=== PATIENT | male | born 1930 | race Caucasian/White ===

== ENCOUNTER 2018-08-01 12:47 | Inpatient (IN) | payer OTHER, MEDICARE ==
[2018-08-01 13:55] LABS: Protime INR 1.1
[2018-08-01 13:56] LABS: Absolute Lymphocytes (CBC) 1.2 K/uL (0.7-4.9); Absolute Monocytes 1.3 K/uL (0.1-1.3); Absolute Neutrophil 10.3 K/uL (1.8-8.0); Basophils % 0.2 % (0-1.3); Eosinophils % 0.4 % (0-4.4); Lymphocytes % 9.5 % (15.3-44.8); MCH 31.6 pg (27.0-35.0); MCV 94.4 fL (80-100); MPV 9.1 fL (7.6-11.3); Monocytes % 9.8 % (3.3-12.3); RBC Red Blood Cell Count 4.77 M/uL (4.33-5.43)
[2018-08-01 14:17] LABS: ALT/SGPT 20 U/L (12-78); AST/SGOT 15 U/L (15-37); Albumin 3.1 g/dL (3.4-5.0); Alkaline Phosphatase 86 U/L (45-117); BUN Blood Urea Nitrogen 19 mg/dL (7-18); Bicarbonate 24 mmol/L (21-32); Bilirubin Direct 0.3 mg/dL (0-0.2); Glucose Level 100 mg/dL (74-106); Magnesium 2.5 mg/dL (1.8-2.4); NT PRO-BNP 2061 pg/mL (<450); Sodium Level 136 mmol/L (136-145); Troponin (Emerg Dept Use Only) < 0.02 ng/mL (0.0-0.045)
--- NOTE | 2018-08-01 14:22 | RAD REPORT ---
EXAM DESCRIPTION: RAD - Chest Single View - 08/01/2018 1:48 pm CLINICAL HISTORY: Wheezing, shortness of breath COMPARISON: August 2014 TECHNIQUE: AP portable chest image was obtained 1343 hours . FINDINGS: Lung volumes are relatively low. No acute right lung field finding. Mid and upper left mukund g field also clear. Left costophrenic angle blunting is present. Left hemidiaphragm is poorly defined . Infiltrate, atelectasis or scarring oral possible in the left base. Patient has had prior left base disease. Trachea is midline. Heart and vasculature are normal. No pneumothorax or large pleural effu valeria. No acute bony abnormality seen. No acute aortic findings suspected. IMPRESSION: Left base opacification from infiltrate, atelectasis, scarring or a combination. No failure or other acute cardiopulmonary finding seen.
--- NOTE | 2018-08-01 16:22 | RAD REPORT ---
EXAM DESCRIPTION: CT - Chest For Pe Angio - 08/01/2018 3:58 pm CLINICAL HISTORY: Chest pain, shortness of breath, low-grade fever COMPARISON: CT study 2014, chest films same date TECHNIQUE: Dynamically enhanced 3 mm thick images of the chest were obtained during administration o f approximately 150mL Isovue 370 IV contrast. Coronal and oblique MIP reconstruction images were gene rated and reviewed. Exam utilizes a protocol to evaluate the pulmonary arterial tree. All CT scans are performed using dose optimization technique as appropriate and may include automated exposure control or mA/KV adjustment according to patient size. FINDINGS: Pulmonary emboli are present at the left pulmonary artery junction with both left upper lo be and left lower lobe lobar and segmental branches. There is atelectasis in the left lower lobe as w ell as a small infiltrate component. Large pulmonary embolism is present in the distal right pulmonar y artery extending into right upper right middle and right lower lobar branches. There is some contin uation into segmental branches in the lower lobe. No saddle embolus. The aorta as imaged shows no acute or suspicious finding. No pericardial thickening or effusion. No right lung field infiltrate. Trace pleural fluid present. No pneumothorax. No mediastinal or hilar suspicious masses. No chest wall masses or abnormal axillary lymphadenopathy. IMPRESSION: Extensive pulmonary embolic disease is present. Large emboli are present at the right an d left pulmonary artery bifurcation into all 5 lobes of the lung dubois. Segmental branch pulmonary e mboli are present in the right lower and left upper lobes. Atelectasis and infiltrate component present in the left lower lobe. Patient has significant hiatal hernia with most of the stomach intrathoracic.
--- NOTE | 2018-08-01 16:26 | ER ---
Nurse's Notes [facility] Name: Dev Sanz Age: 87 yrs Sex: Male : 1930 Arrival Date: 08/01/2018 Time: 12:51 Bed 19 Private MD: Terry Conde E Diagnosis: Pulmonary embolism Presentation: 08/01 12:54 Presenting complaint: Patient states: I have been having wheezing for the last week la1 with intermittent low grade fever. My PCP though it was my heart and I had an echo and nuclear stress on Thursday and and they were normal but they never did a CXR. Transition of care: patient was not received from another setting of care. Onset of symptoms was August 01, 2018. Risk Assessment: Do you want to hurt yourself or someone else? Patient reports no desire to harm self or others. Initial Sepsis Screen: Does the patient meet any 2 criteria? No. Patient's initial sepsis screen is negative. Does the patient have a suspected source of infection? No. Patient's initial sepsis screen is negative. Care prior to arrival: None. 12:54 Method Of Arrival: Wheelchair la1 12:54 Acuity: DANILO 3 la1 Historical: - Allergies: 12:56 No Known Allergies; la1 - Home Meds: 17:46 Osteo Bi-Flex oral oral [Active]; Probiotic oral oral [Active]; Gas-X oral oral twice a em day [Active]; cephalexin 500 mg Oral cap daily [Active]; carvedilol 3.125 mg oral tab 1 tab 2 times per day [Active]; lisinopril 10 mg Oral tab 1 tab once daily [Active]; furosemide 20 mg Oral tab 1 tab once daily [Active]; - PMHx: 12:56 hiatal hernia; Hypertension; la1 - PSHx: 17:46 None; em - Immunization history:: Adult Immunizations up to date. - Social history:: Smoking status: Patient/guardian denies using tobacco. - Ebola Screening: : No symptoms or risks identified at this time. Screenin:20 Abuse screen: Denies threats or abuse. Nutritional screening: No deficits noted. em Tuberculosis screening: No symptoms or risk factors identified. Fall Risk None identified. Assessment: 13:20 General: Appears in no apparent distress. uncomfortable, Behavior is calm, cooperative, em Denies fever. Pain: Complains of pain in diaphragm Pain does not radiate. Pain currently is 0 out of 10 on a pain scale. Pain began 2-3 days ago. Neuro: Level of Consciousness is awake, alert, obeys commands, Oriented to person, place, time, situation. Cardiovascular: Capillary refill < 3 seconds Patient's skin is warm and dry. Rhythm is sinus rhythm. Respiratory: Reports shortness of breath cough that is Airway is patent Respiratory effort is even, Respiratory pattern is regular, tachypnea Breath sounds are clear bilaterally. Onset: The symptoms/episode began/occurred 1 week ago, the patient has mild shortness of breath. GI: Abdomen is round Bowel sounds present X 4 quads. Reports nausea, vomiting. : Barber in place Urine is clear. EENT: No signs and/or symptoms were reported regarding the EENT system. Derm: Skin is intact, Skin is pink, warm \T\ dry. Musculoskeletal: Range of motion: limited in all extremities. 13:30 Reassessment: I agree with previous assessment. hb 14:31 Reassessment: Patient appears in no apparent distress at this time. Patient and/or em family updated on plan of care and expected duration. Pain level reassessed. Patient is alert, oriented x 3, equal unlabored respirations, skin warm/dry/pink. pending CT. 16:30 Reassessment: Patient and/or family updated on plan of care and expected duration. Pain em level reassessed. Patient is alert, oriented x 3, equal unlabored respirations, skin warm/dry/pink. rad. tech reports the IV in pt infiltrated during CT exam, D/C IV canula, swelling noted, warm compresses applied, pt denies pain currently, instructed to inform staff if pain arises, pt demonstrate understanding Patient denies pain at this time. 17:25 Reassessment: Patient appears in no apparent distress at this time. Patient and/or em family updated on plan of care and expected duration. Pain level reassessed. Patient is alert, oriented x 3, equal unlabored respirations, skin warm/dry/pink. Patient denies pain at this time. 17:35 Reassessment: ultrasound at bedside, report given to SHENG Rodriguez. em 18:12 Reassessment: Patient appears in no apparent distress at this time. Patient and/or em family updated on plan of care and expected duration. Pain level reassessed. Patient is alert, oriented x 3, equal unlabored respirations, skin warm/dry/pink. Vital Signs: 12:56 BP 122 / 88; Pulse 75; Resp 16; Temp 99.1; Pulse Ox 92% on R/A; Weight 86.18 kg; Height la1 5 ft. 9 in. (175.26 cm); 14:24 BP 131 / 71; Pulse 79; Resp 23; Pulse Ox 93% on 2 lpm NC; Pain 0/10; em 15:30 BP 132 / 76; Pulse 76; Resp 18; Pulse Ox 99% on R/A; Pain 0/10; em 16:30 BP 121 / 85; Pulse 79; Resp 16; Pulse Ox 95% on 3 lpm NC; Pain 0/10; em 17:46 BP 124 / 86; Pulse 75; Resp 26; Temp 98.6(O); Pulse Ox 97% on R/A; Pain 0/10; em 12:56 Body Mass Index 28.06 (86.18 kg, 175.26 cm) la1 ED Course: 12:51 Patient arrived in ED. sb2 12:51 Terry Conde MD is Private Physician. sb2 12:55 Triage completed. la1 12:57 Arm band placed on left wrist. la1 13:02 Kryst[facility] White F[facility]-C [facility]. kb 13:02 Kraig Garcia MD is Attending Physician. kb 13:11 EKG done, by ED staff, reviewed by Krysten REDMOND. dh3 13:20 Patient has correct armband on for positive identification. Placed in gown. Bed in low em position. Call light in reach. Side rails up X2. Adult w/ patient. bus driver/monitor on. Pulse ox on. NIBP on. 13:20 Oxygen administration via nasal cannula \T\ 2L/min. em 13:21 Nik Felton LVN is Primary Nurse. em 13:30 Initial lab(s) drawn, by me, sent to lab. Inserted saline lock: 22 gauge in left em antecubital area, using aseptic technique. Blood collected. 13:46 X-ray completed. Portable x-ray completed in exam room. Patient tolerated procedure la2 well. 13:48 XRAY Chest (1 view) In Process Unspecified. EDMS 15:59 CT Chest For PE Angio In Process Unspecified. EDMS 16:25 Ilene Dempsey MD is Hospitalizing Provider. kb 16:30 No provider procedures requiring assistance completed. IV discontinued, intact, em bleeding controlled, No redness/swelling at site. Pressure dressing applied, left AC. Administered Medications: 16:52 Drug: Lovenox 1 mg/kg Route: Sub-Q; Site: right lower abdomen; em 17:48 Follow up: Response: No adverse reaction em Outcome: 16:26 Decision to Hospitalize by Provider. kb 18:11 Admitted to Tele accompanied by tech, family with patient, via stretcher, room 431, em with oxygen, with chart, Report called to SHENG Rodriguez 18:11 Condition: good 18:11 Instructed on the need for admit, Demonstrated understanding of instructions. 18:13 Patient left the ED. em Signatures: Dispatcher [employer] EDMS Krysten White, SLICER MACHINE OPERATOR-C SLICER MACHINE OPERATOR-Ckb Nik Felton, DIGITAL MUSIC INSTRUCTOR DIGITAL MUSIC INSTRUCTOR em Peter Whipple RN RN la1 Ninfa Recinos, SHENG RN Angelica Rao 3 Romi Santamaria la2 Ellen Hawkins 2
--- NOTE | 2018-08-01 16:26 | EDPHYS ---
Physician Documentation [facility] Name: Dev Sanz Age: 87 yrs Sex: Male : 1930 Arrival Date: 08/01/2018 Time: 12:51 Bed 19 Private MD: Terry Conde E ED Physician Kraig Garcia HPI: 08/01 14:40 This 87 yrs old Male presents to ER via Wheelchair with complaints of kb Wheezing > 1 Year. 14:40 The patient has shortness of breath at rest. Onset: The symptoms/episode began/occurred kb 1 month(s) ago. Duration: The symptoms are continuous. The patient's shortness of breath is aggravated by exertion, is alleviated by nothing. Associated signs and symptoms: Pertinent positives: chest pain, Pertinent negatives: non-productive cough, productive cough, diaphoresis, dizziness, fever, hemoptysis, loss of consciousness, nausea, numbness in extremities, visual changes, vomiting. Severity of symptoms: At their worst the symptoms were moderate in the emergency department the symptoms are unchanged. The patient has not experienced similar symptoms in the past. The patient has been recently seen by a physician: the patient's primary care provider. Historical: - Allergies: 12:56 No Known Allergies; la1 - Home Meds: 17:46 Osteo Bi-Flex oral oral [Active]; Probiotic oral oral [Active]; Gas-X oral oral twice a em day [Active]; cephalexin 500 mg Oral cap daily [Active]; carvedilol 3.125 mg oral tab 1 tab 2 times per day [Active]; lisinopril 10 mg Oral tab 1 tab once daily [Active]; furosemide 20 mg Oral tab 1 tab once daily [Active]; - PMHx: 12:56 hiatal hernia; Hypertension; la1 - PSHx: 17:46 None; em - Immunization history:: Adult Immunizations up to date. - Social history:: Smoking status: Patient/guardian denies using tobacco. - Ebola Screening: : No symptoms or risks identified at this time. ROS: 14:39 Constitutional: Negative for fever, chills, and weight loss, Abdomen/GI: Negative for kb abdominal pain, nausea, vomiting, diarrhea, and constipation, Back: Negative for injury and pain, : Negative for injury, bleeding, discharge, and swelling, MS/Extremity: Negative for injury and deformity, Skin: Negative for injury, rash, and discoloration, Neuro: Negative for headache, weakness, numbness, tingling, and seizure. 14:39 Cardiovascular: Positive for chest pain, of the diaphragm. 14:39 Respiratory: Positive for dyspnea on exertion, shortness of breath, wheezing, Negative for cough, hemoptysis, orthopnea, pleurisy, sputum production. Exam: 14:39 Constitutional: This is a well developed, well nourished patient who is awake, alert, kb and in no acute distress. Head/Face: Normocephalic, atraumatic. ENT: Nares patent. No nasal discharge, no septal abnormalities noted. Tympanic membranes are normal and external auditory canals are clear. Oropharynx with no redness, swelling, or masses, exudates, or evidence of obstruction, uvula midline. Mucous membranes moist. Neck: Trachea midline, no thyromegaly or masses palpated, and no cervical lymphadenopathy. Supple, full range of motion without nuchal rigidity, or vertebral point tenderness. No Meningismus. Chest/axilla: Normal chest wall appearance and motion. Nontender with no deformity. No lesions are appreciated. Cardiovascular: Regular rate and rhythm with a normal S1 and S2. No gallops, murmurs, or rubs. Normal PMI, no JVD. No pulse deficits. Abdomen/GI: Soft, non-tender, with normal bowel sounds. No distension or tympany. No guarding or rebound. No evidence of tenderness throughout. Back: No spinal tenderness. No costovertebral tenderness. Full range of motion. Skin: Warm, dry with normal turgor. Normal color with no rashes, no lesions, and no evidence of cellulitis. MS/ Extremity: Pulses equal, no cyanosis. Neurovascular intact. Full, normal range of motion. Neuro: Awake and alert, GCS 15, oriented to person, place, time, and situation. Cranial nerves II-XII grossly intact. Motor strength 5/5 in all extremities. Sensory grossly intact. Cerebellar exam normal. Normal gait. 14:39 Respiratory: mild respiratory distress is noted, Respirations: labored breathing, that is mild, Breath sounds: decreased breath sounds, that are moderate, are located in both bases. Vital Signs: 12:56 BP 122 / 88; Pulse 75; Resp 16; Temp 99.1; Pulse Ox 92% on R/A; Weight 86.18 kg; Height la1 5 ft. 9 in. (175.26 cm); 14:24 BP 131 / 71; Pulse 79; Resp 23; Pulse Ox 93% on 2 lpm NC; Pain 0/10; em 15:30 BP 132 / 76; Pulse 76; Resp 18; Pulse Ox 99% on R/A; Pain 0/10; em 16:30 BP 121 / 85; Pulse 79; Resp 16; Pulse Ox 95% on 3 lpm NC; Pain 0/10; em 17:46 BP 124 / 86; Pulse 75; Resp 26; Temp 98.6(O); Pulse Ox 97% on R/A; Pain 0/10; em 12:56 Body Mass Index 28.06 (86.18 kg, 175.26 cm) la1 MDM: 13:02 Patient medically screened. kb 14:40 Data reviewed: vital signs, nurses notes. Data interpreted: Pulse oximetry: on room air kb is 92 %. Interpretation: borderline. 16:20 Counseling: I had a detailed discussion with the patient and/or guardian regarding: the kb historical points, exam findings, and any diagnostic results supporting the discharge/admit diagnosis, lab results, radiology results, the need for further work-up and treatment in the hospital. 16:25 Physician consultation: Ilene Dempsey MD was called at 16:25, message left. kb 08/01 13:06 Order name: Basic Metabolic Panel; Complete Time: 14:18 kb 08/01 13:06 Order name: CBC with Diff; Complete Time: 14:07 kb 08/01 13:06 Order name: LFT's; Complete Time: 14:18 kb 08/01 13:06 Order name: Magnesium; Complete Time: 14:18 kb 08/01 13:06 Order name: NT PRO-BNP; Complete Time: 14:18 kb 08/01 13:06 Order name: PT-INR; Complete Time: 14:07 kb 08/01 13:06 Order name: Troponin (emerg Dept Use Only); Complete Time: 14:18 kb 08/01 13:06 Order name: XRAY Chest (1 view); Complete Time: 14:23 kb 08/01 13:06 Order name: EKG; Complete Time: 13:07 kb 08/01 13:06 Order name: Cardiac monitoring; Complete Time: 14:19 kb 08/01 13:06 Order name: EKG - Nurse/Tech; Complete Time: 13:11 kb 08/01 14:25 Order name: CT Chest For PE Angio; Complete Time: 16:23 kb 08/01 16:23 Order name: US Extremity Venous W Compression Sae kb 08/01 13:06 Order name: IV Saline Lock; Complete Time: 14:19 kb 08/01 13:06 Order name: Labs collected and sent; Complete Time: 14:19 kb 08/01 13:06 Order name: O2 Per Protocol; Complete Time: 14:19 kb 08/01 13:06 Order name: O2 Sat Monitoring; Complete Time: 14:19 kb Administered Medications: 16:52 Drug: Lovenox 1 mg/kg Route: Sub-Q; Site: right lower abdomen; em 17:48 Follow up: Response: No adverse reaction em Disposition: 08/02 07:34 Co-signature as Attending Physician, Kraig Garcia MD I agree with the assessment and haresh plan of care. Disposition: 08/01/18 16:26 Hospitalization ordered by Ilene Dempsey for Inpatient Admission. Preliminary diagnosis is Pulmonary embolism. - Bed requested for Telemetry/MedSurg (Inpatient). - Status is Inpatient Admission. em - Condition is Fair. - Problem is new. - Symptoms are unchanged. UTI on Admission? No Signatures: Dispatcher [employer] EDKrysten Krause, ATOMIC PHYSICS PROFESSOR-C ATOMIC PHYSICS PROFESSOR-Ckb Kraig Garcia MD MD cha Munoz, Edgar, [employer]IVER [employer] Peter Marcelino, RN RN laAdri Shafer RN RN df Corrections: (The following items were deleted from the chart) 08/01 17:03 16:26 Hospitalization Ordered by Ilene Dempsey MD for Inpatient Admission. Preliminary df diagnosis is Pulmonary embolism. Bed requested for Telemetry/MedSurg (Inpatient). Status is Inpatient Admission. Condition is Fair. Problem is new. Symptoms are unchanged. UTI on Admission? No. kb 18:13 17:03 08/01/2018 16:26 Hospitalization Ordered by Ilene Dempsey MD for Inpatient em Admission. Preliminary diagnosis is Pulmonary embolism. Bed requested for Telemetry/MedSurg (Inpatient). Status is Inpatient Admission. Condition is Fair. Problem is new. Symptoms are unchanged. UTI on Admission? No. df
[2018-08-01] MEDS ORDERED: ONDANSETRON 4 MG/2 ML VIAL IV PRN (16:44)
[2018-08-01] MEDS ORDERED: ENOXAPARIN 80 MG/0.8 ML SQ ONE (16:49)
--- NOTE | 2018-08-01 18:28 | RAD REPORT ---
EXAM DESCRIPTION: US - Extrem Venous W Compress Sae - 08/01/2018 6:20 pm CLINICAL HISTORY: Leg pain and swelling COMPARISON: CT chest PE study same date TECHNIQUE: Real-time sonographic evaluation of the bilateral lower extremity common femoral, superfi cial femoral, popliteal and posterior tibial veins was performed. FINDINGS: Normal compressibility, flow augmentation, phasic flow and spontaneous flow are identified in the left lower extremity common femoral, superficial femoral, popliteal and posterior tibial vein s. No intraluminal filling defects seen. Right common femoral and superficial femoral veins are clear. Thrombus is present partially filling t he right popliteal vein. Vessel shows partial compression. Right posterior tibial vein is noncompress ible due to thrombus. IMPRESSION: Acute deep venous thrombosis right lower extremity from knee to ankle. No left leg DVT.
[2018-08-01] MEDS ORDERED: Levofloxacin 750mg IV 750 MG/150 ML BAG IV SCH (20:00)
[2018-08-01] MEDS: ENOXAPARIN 100 MG/ML SYR SQ SCH ×2 (20:33→20:46)
[2018-08-01 22:21] LABS: Urine Appearance CLEAR; Urine Bilirubin NEGATIVE (NEG); Urine Blood NEGATIVE (NEG); Urine Color YELLOW; Urine Glucose NEGATIVE (NEG); Urine Protein TRACE (NEG); Urine Specific Gravity >=1.030 (1.005-1.030)
[2018-08-01 22:28] LABS: Urine Microscopic Reflex ORDER UMIC
[2018-08-02 00:43] LABS: Urine Culture Reflex Order REFLEXED
[2018-08-02 00:44] LABS: Urine Bacteria <20 /HPF (NONE SEEN); Urine RBC <5 /HPF (NONE SEEN)
--- NOTE | 2018-08-02 05:04 | HP ---
Date of Admission: 08/01/2018 Primary Care Physician: Dr. Conde. Code Status: Full. Chief Complaint: Shortness of breath. History Of Present Illness: The patient is an 87-year-old male with past medical history of hypertension, who was in his usual state of health until 4 weeks prior to admission when the patient had sudden onset of shortness of breath. The patient was seen by primary care physician, thought to have issues with his heart and was sent to a employment officer. The patient's symptoms were worse with exertion. He denied any cough, sputum production, fevers, chills. No ill contacts. The patient's symptoms improved with rest. The patient denies any prolonged car rides or airplane flights. Otherwise, his symptoms were constant, moderate, and progressively worsening. The patient was seen by Cardiology recently, had a cardiac stress test done which was negative. Due to the patient's worsening symptoms, the was concerned and therefore brought him into the ER for further evaluation. Upon arrival, the patient's vital signs were stable. He was saturating 92% on room air which improved to 95% on 3 L. His workup revealed elevated white count of 12,000. BNP was 2000. Imaging studies, chest x-ray shows left base opacification from infiltrate, atelectasis, scarring or combination. CT angio chest was done for further evaluation and revealed extensive pulmonary embolic disease bilaterally and atelectasis and infiltrate present in the left lower lobe and significant hiatal hernia. The patient was given Lovenox and then referred for admission. When seen in the ER, the patient was awake, alert, oriented x3, in some mild respiratory distress. Past Medical History: Hypertension, hiatal hernia. Past Surgical History: None. Allergies: NO KNOWN DRUG ALLERGIES. Medications: List reviewed. Social History: The patient is , lives with his . Denies any tobacco use, alcohol use, or illicit drug use. Family History: Noncontributory in this 87-year-old male. Review of Systems: A 10-point system reviewed, negative except as above. Physical Examination: Vital Signs: Blood pressure 122/88, pulse 75, respirations 16, temperature 99.1 , O2 92% on room air. General: Awake, alert, oriented x3, elderly male, in some respiratory distress. Ill-appearing, frail. HEENT: Normocephalic, atraumatic. PERRLA. EOMI. Dry mucous membranes. Oropharynx is clear. Conjunctivae are anicteric. Neck: Supple. No JVD. Trachea midline. CV: S1, S2. Regular rate and rhythm. Peripheral pulses present. Respiratory: Diminished breath sounds, left worse than right. No wheezing or crackles. Gastrointestinal: Abdomen is soft, nontender, nondistended. Positive bowel sounds. No guarding or rigidity. Extremities: No clubbing, cyanosis, or edema. calf swelling Skin: The patient does have multiple abrasions and ecchymoses on his bilateral lower extremities. Otherwise, no rashes. Neuro: Cranial nerves 2 through 12 intact grossly. No focal neurological deficit. Speech is normal. Strength is symmetric in bilateral upper and lower extremities. Sensation intact to light touch. Psych: Mood is okay. Affect is full. Insight and judgment are fair. Laboratory Data: Sodium 136, potassium 4, chloride 104, CO2 24, BUN 19, creatinine 1.2, glucose 100, calcium 8.3, magnesium 2.5. Troponin less than 0.02. BNP 2061. Albumin 3.1, INR 1.10. WBC 12.8, H and H 15.1 and 45, platelets 154, neutrophils 80%. Imaging Studies: CT angio chest shows extensive pulmonary embolic disease present. Large emboli present at the right and left pulmonary artery bifurcation into all 5 lobes of the lung dubois. Segmental branch pulmonary emboli present in the right lower lobe and the left upper lobes. Atelectasis and infiltrate component present in the left lower lobe. The patient has significant hiatal hernia with most of the stomach intrathoracic. Chest x-ray shows left base opacification from infiltrate, atelectasis, scarring or combination. No failure or other cardiopulmonary abnormality. Assessment: An 87-year-old male with: 1. Extensive bilateral pulmonary embolisms. We will start on Lovenox 1 mg/kg q.12 hours. 2. Left base pneumonia. We will continue with IV antibiotics. Obtain blood cultures and sputum cultures. 3. Essential hypertension. Resume home medications as appropriate. 4. Hypermagnesemia. 5. Large hiatal hernia. Plan: Admit the patient to ICU, place as inpatient. We will consult Dr. Lanier, Pulmonology. We will obtain echocardiogram results or repeat echocardiogram here. We will obtain Doppler venous lower extremities bilaterally. Overall guarded prognosis. Place on continuous pulse oximetry. Unclear etiology of the PE. We will follow up with Doppler sono. /GENIE Voice ID: [id number] MTDD
[2018-08-02 06:09] LABS: Albumin 2.7 g/dL (3.4-5.0); Bilirubin Total 1.2 mg/dL (0.2-1.0); Potassium 3.5 mmol/L (3.5-5.1); Protein, Total 6.1 g/dL (6.4-8.2)
[2018-08-02 06:44] LABS: Absolute Lymphocytes (CBC) 1.2 K/uL (0.7-4.9); Absolute Monocytes 1.2 K/uL (0.1-1.3); Absolute Neutrophil 8.4 K/uL (1.8-8.0); Basophils % 0.2 % (0-1.3); Eosinophils % 0.6 % (0-4.4); MCH 31.8 pg (27.0-35.0); MCV 94.2 fL (80-100); MPV 9.7 fL (7.6-11.3); Monocytes % 10.8 % (3.3-12.3); RBC Red Blood Cell Count 4.24 M/uL (4.33-5.43)
--- NOTE | 2018-08-02 07:41 | EKG ---
Test Date: 2018-08-01 Test Time: 13:09:29 House Painter Helper: VAN MEASUREMENT RESULTS: Intervals: Rate: 76 VT: 164 QRSD: 134 QT: 426 QTc: 479 [place]: P: 55 VT: 164 QRS: -71 T: 109 INTERPRETIVE STATEMENTS: Normal sinus rhythm Left axis deviation Left bundle branch block Abnormal ECG Compared to ECG 06/26/2004 10:54:00 Left-axis deviation now present Left bundle branch block now present Sinus bradycardia no longer present Electronically Signed On 08-02-18 07:40:05 SOFTWARE RELEASE MANAGER by Bhupendra Delaney
--- NOTE | 2018-08-02 07:45 | P.CNS ---
Date of Consult: 08/02/18 Reason for Consult: Pulmonary emboli Chief Complaint: Shortness of breath History of Present Illness: Patient is 87 years of age a poor historian he has been dyspneic for quite some time became worse over the past week no prior history of cardiopulmonary problems he had bilateral pulmonary emboli no recent surgery no recent history of any malignancy patient is currently stable complaining of dyspnea on mild exertion patient was evaluated by Cardiology recently in the ICU stable Allergies No Known Allergies Allergy (Unverified 08/01/18 18:34) Home Medications: Carvedilol [Coreg*] 3.125 mg PO BID 08/01/18 Furosemide 20 mg PO DAILY 08/01/18 Glucosamine HCl/Chondr Diane A Na [Osteo Bi-Flex Caplet] 1 each PO DAILY 08/01/18 L.acidoph,Paracasei, B.lactis [Probiotic] 1 each PO DAILY 08/01/18 Lisinopril [Prinivil*] 10 mg PO DAILY 08/01/18 Simethicone [Gas-X] 1 cap PO BID 08/01/18 cephALEXin [Cephalexin] 500 mg PO DAILY 08/01/18 - Past Medical/Surgical History Diabetic: No -: HTN -: anemia -: bladder retention -: hiatal hernia -: Greenlight prostate laser -: bilateral cataract - Family History Father Medical History: Cancer Notes: Bladder CA Mother Medical History: Heart disease - Social History Alcohol use: No CD- Drugs: No Caffeine use: Yes Place of Residence: Home Review of Systems 10-point ROS is otherwise unremarkable General: Weakness Respiratory: Shortness of Breath Physical Examination Temp Pulse Resp BP Pulse Ox 98.9 F 75 24 H 109/68 96 08/02/18 04:00 08/02/18 06:00 08/02/18 06:00 08/02/18 06:00 08/02/18 06:00 General: Alert, Oriented x3 HEENT: Atraumatic Neck: Supple Respiratory: Clear to auscultation bilaterally Cardiovascular: Regular rate/rhythm, Normal S1 S2, Edema (Right leg is swollen) Gastrointestinal: Normal bowel sounds, Soft and benign Musculoskeletal: No clubbing, No swelling Integumentary: No rashes, No breakdown Neurological: Normal speech Laboratory Data (last 24 hrs) 08/01/18 13:36: PT 13.0 H, INR 1.10 08/01/18 13:36: WBC 12.8 H, Hgb 15.1, Hct 45.0, Plt Count 154 08/01/18 13:36: Sodium 136, Potassium 4.0, BUN 19 H, Creatinine 1.20, Glucose 100, Magnesium 2.5 H, Total Bilirubin 1.0, AST 15, ALT 20, Alkaline Phosphatase 86 - Problems (1) Pulmonary emboli Current Visit: Yes Status: Acute Plan: Patient is 87 years of age admitted with right-sided DVT bilateral pulmonary emboli with blood pressure is slightly low will Dc his antihypertensive agent 2D echo with Doppler fluid bolus currently anti coagulated with Lovenox plan to Dc all antibiotics all anti hypertensive agents patient is stable to be transferred to the floor patient will need lifelong anticoagulation due to the extent of his pulmonary emboli Qualifiers: Chronicity: acute
[2018-08-02] MEDS ORDERED: CARVEDILOL 3.125 MG TAB PO SCH (08:00)
[2018-08-02] MEDS ORDERED: NA CHLORIDE 0.9% 1,000 ML IV SCH (08:00)
[2018-08-02] MEDS: ENOXAPARIN 100 MG/ML SYR SQ SCH (08:49)
[2018-08-02] MEDS ORDERED: FUROSEMIDE 20 MG PO SCH (09:00)
[2018-08-02] MEDS ORDERED: HOME MED 1 EA UNK (L.Acidoph,Paracasei, B.Lactis [Probiotic] 1 EACH) PO SCH (09:00)
[2018-08-02] MEDS ORDERED: GLUCOSAMINE HCL PO SCH (09:00)
[2018-08-02] MEDS ORDERED: CHONDR SU A NA PO SCH (09:00)
[2018-08-02] MEDS ORDERED: LISINOPRIL 10 MG PO SCH (09:00)
[2018-08-02] MEDS ORDERED: CEPHALEXIN 500 MG PO SCH (09:00)
--- NOTE | 2018-08-02 12:46 | PN ---
Date of Progress Note: 08/02/2018 Subjective: Patient seen and examined. Chart reviewed and case discussed with RN and Dr. Lanier. The patient states his breathing is better; however, gets very short winded with minimal movement. Medications: List reviewed. Code Status: Full. Physical Examination: Vital Signs: Temperature 98.5, heart rate 72, blood pressure 101/63, respirations 24, O2 98% on 3 L via nasal cannula. General: Awake, alert, oriented x3. Elderly male, somewhat ill appearing. CV: S1 and S2. Regular rate and rhythm. Peripheral pulses present bilaterally. Respiratory: The patient is tachypneic, use of accessory muscles is present, otherwise moving air well. Gastrointestinal: Abdomen is soft, nontender, nondistended. Positive bowel sounds. No guarding or rigidity. Extremities: No clubbing, cyanosis, or edema. Neuro: Cranial nerves 2 through 12 intact grossly. No focal neurological deficit. Speech is normal. Skin: No rashes. Normal skin turgor. Does have some abrasions on his lower extremities bilaterally. Laboratory Data: Sodium 138, potassium 3.5, chloride 103, CO2 27, BUN 18, creatinine 1.3, glucose 90, calcium 8.2, total bilirubin 1.2, albumin 2.7. WBC 10.8, platelets 148. Urine culture pending. Assessment: An 87-year-old male with: 1. Bilateral extensive pulmonary embolism. We will continue with Lovenox. We will need to be switched over to oral anticoagulant upon discharge. The patient seen by Pulmonology. Appreciate Dr. Lanier's input. Will need to be on lifelong anticoagulation due to the extent of his embolism. 2. Left base pneumonia. Antibiotics discontinued by Pulmonology. White count has normalized. Cultures pending. The patient denies any cough or sputum production. 3. Essential hypertension. The patient is currently hypotensive. Blood pressure medications on hold. 4. Right lower extremity deep vein thrombosis, extensive, likely source of thromboembolism. We will continue with Lovenox therapeutic dose. 5. Large hiatal hernia. 6. Hyperbilirubinemia, likely acute phase reactant. Plan: Step down from ICU. We will likely discharge in the next 24 to 48 hours depending on clinical response once blood pressure improves. The patient did have a recent stress test and echocardiogram last week. We will repeat echocardiogram to rule out right ventricular strain. The patient is hypotensive. /GENIE Voice ID: [id number] Report ID: [id number] AMADO
[2018-08-02] MEDS: NA CHLORIDE 0.9% 1,000 ML IV SCH ×2 (13:34→23:56)
--- NOTE | 2018-08-02 15:07 | ECHO ---
HEIGHT: 5 ft 8.5 in WEIGHT: 185 lb 0 oz DATE OF STUDY: 08/02/[address]: 2-DIMENSIONAL: YES M.MODE: YES DOPPLER: YES COLOR FLOW: YES TDS: NO PORTABLE: NO DEFINITY: NO BUBBLE STUDY: NO DIAGNOSIS: DYSPNEA CARDIAC HISTORY: CATHERIZATION: NO SURGERY: NO PROSTHETIC VALVE: NO PACEMAKER: NO MEASUREMENTS (cm) DIASTOLIC (NORMALS) SYSTOLIC (NORMALS) IVSd 1.0 (0.6-1.2) LA Diam 2.5 (1.9-4.0) LVEF 57% LVIDd 3.6 (3.5-5.7) LVIDs (2.0-3.5) %FS 29% LVPWd 1.2 (0.6-1.2) Ao Diam 3.3 (2.0-3.7) 2 DIMENSIONAL ASSESSMENT: RIGHT ATRIUM: DILATED LEFT ATRIUM: NORMAL RIGHT VENTRICLE: DILATED LEFT VENTRICLE: NORMAL TRICUSPID VALVE: NORMAL MITRAL VALVE: NORMAL PULMONIC VALVE: NORMAL AORTIC VALVE: NORMAL PERICARDIAL EFFUSION: NONE AORTIC ROOT: NORMAL LEFT VENTRICULAR WALL MOTION: NORMAL DOPPLER/COLOR FLOW: MILD AORTIC REGURGITATION. IMPAIRED LEFT VENTRICULAR RELAXATION. MODERATE TRICUSPID REGURGITATION. SEVERE PULMONARY HYPERTENSION. ESTIMATED RIGHT VENTRICULAR SYSTOLIC PRESSURE >65 MMHG. COMMENTS: NORMAL LEFT VENTRICULAR EJECTION FRACTION. DILATED RIGHT ATRIUM AND RIGHT VENTRICLE. MILD AORTIC REGURGITATION. MODERATE TRICUSPID REGURGITATION. SEVERE PULMONARY HYPERTENSION. TECHNOLOGIST: AARON CAMPOS
--- NOTE | 2018-08-02 15:44 | P.PN ---
Subjective Date of Service: 08/01/18 patient complained of pleuritic chest pain. Remains hypoxic & becomes really tachypneic with minimal exertion. Will check echocardiogram in a.m. Review of Systems 10-point ROS is otherwise unremarkable Physical Examination - Vital Signs Temperature: 100.2 F Blood Pressure: 110/68 Pulse: 97 Respirations: 24 Pulse Ox (%): 94 - Physical Exam General: Alert, Mild distress Respiratory: Diminished, Expiratory wheezes Cardiovascular: Other (tachycardic with murmur) Musculoskeletal: No clubbing, Swelling Assessment & Plan - Problems (Diagnosis) (1) Pulmonary embolism, bilateral Current Visit: Yes Status: Acute (2) Hypotension Current Visit: Yes Status: Acute - Plan PLAN: 1. Continue anticoagulation 2. Echocardiogram 3. IV hydration Discharge Plan: Home Plan to discharge in: Greater than 2 days - Advance Directives Does patient have a Living Will: No Does patient have a Durable POA for Healthcare: No - Code Status/Comfort Care Code Status Assessed: Yes Code Status: Full Code
[2018-08-02] MEDS: ENOXAPARIN 80 MG/0.8 ML SQ SCH (20:32)
[2018-08-02] MEDS: SIMETHICONE 125 MG TAB PO SCH (20:33)
[2018-08-02] MEDS: ACETAMINOPHEN 500 MG TAB PO PRN (20:33)
[2018-08-03 04:13] LABS: Absolute Neutrophil 8.1 K/uL (1.8-8.0); Basophils % 0.2 % (0-1.3); Eosinophils % 0.7 % (0-4.4); Hematocrit 40.2 % (39.6-49.0); Lymphocytes % 9.5 % (15.3-44.8); MCH 31.5 pg (27.0-35.0); MCV 94.9 fL (80-100); MPV 9.3 fL (7.6-11.3); Monocytes % 9.8 % (3.3-12.3); RBC Red Blood Cell Count 4.24 M/uL (4.33-5.43)
[2018-08-03 04:27] LABS: Albumin 2.4 g/dL (3.4-5.0); Bilirubin Total 0.7 mg/dL (0.2-1.0); Potassium 3.6 mmol/L (3.5-5.1); Protein, Total 5.9 g/dL (6.4-8.2)
--- NOTE | 2018-08-03 08:14 | P.PN ---
Subjective Date of Service: 08/03/18 Chief Complaint: Massive pulmonary embolism Patient's condition is stable is still short of breath relatively low blood pressure. Considering that he takes antihypertensives at home was very abnormal right ventricular dilatation severe pulmonary hypertension Review of Systems General: Weakness Respiratory: Shortness of Breath Physical Examination - Vital Signs Temperature: 98.9 F Blood Pressure: 119/62 Pulse: 74 Respirations: 20 Pulse Ox (%): 94 - Physical Exam General: Alert, Oriented x3 Neck: Supple Respiratory: Clear to auscultation bilaterally Cardiovascular: Regular rate/rhythm, Edema (Edema of the right leg) Assessment And Plan - Current Problems (Diagnosis) (1) Pulmonary emboli Current Visit: Yes Status: Acute Plan: Patient is 87 years of age admitted with massive pulmonary embolism right ventricular strain right ventricular dilatation, severe pulmonary hypertension relatively low blood pressure considering he takes anti hypertensive agents I have discussed with the patient and his will plan to administer t-PA 100 mg over 2 hr tomorrow in the ICU I have discussed the risks and benefit include bleeding stroke patient agrees due to severity of his pulmonary embolism he is very high a risk so therefore in this case the risk better outweighs the benefits patient denies any recent falls surgeries history of intracranial neoplasm verified with patient only takes aspirin at home Qualifiers: Chronicity: acute
[2018-08-03] MEDS: ENOXAPARIN 80 MG/0.8 ML SQ SCH ×2 (08:29→21:34)
[2018-08-03] MEDS: NA CHLORIDE 0.9% 1,000 ML IV SCH ×2 (08:39→21:40)
[2018-08-03] MEDS: SIMETHICONE 125 MG TAB PO SCH ×2 (09:00→21:35)
[2018-08-03] MEDS: ACETAMINOPHEN 500 MG TAB PO PRN ×2 (12:16→21:35)
--- NOTE | 2018-08-03 14:22 | P.PN ---
Subjective Date of Service: 08/03/18 Chief Complaint: Massive pulmonary embolism Subjective: No new changes, No C/O voiced Patient seen and examined at bedside. No family at bedside. Chart reviewed and case discussed with nursing staff. Still reports shortness of breath with minimal movement Review of Systems As noted Physical Examination - Vital Signs Temperature: 100.1 F Blood Pressure: 128/86 Pulse: 92 Respirations: 20 Pulse Ox (%): 95 - Physical Exam General: Alert, In no apparent distress, Oriented x3 HEENT: Atraumatic, PERRLA, EOMI Neck: Supple, JVD not distended Respiratory: Diminished Cardiovascular: Regular rate/rhythm, Normal S1 S2 Gastrointestinal: Normal bowel sounds, No tenderness Musculoskeletal: No tenderness Integumentary: No rashes Neurological: Normal speech, Normal tone, Normal affect Lymphatics: No axilla or inguinal lymphadenopathy Assessment And Plan - Plan This is a 87-year-old male with: Bilateral extensive pulmonary embolism Pulmonology consulted, appreciate recommendations. Plan is to transfer patient back to the ICU tomorrow for t-PA administration as patient remains hypotensive , and there was right ventricular strain along with pulmonary hypertension noted on the echocardiogram. He will likely need to be discharged on oral anticoagulation and will need to be on lifelong anticoagulation the extent of embolism Left base pneumonia Antibiotics discontinued per pulmonology, normal white count now. Culture still pending. Patient denying any cough for sputum production Will continue to monitor Essential hypertension Blood pressure medications currently on hold due to being hypotensive. Right lower extremity deep vein thrombosis, extensive, likely source of thromboembolism Will continue with anticoagulation Large hiatal hernia Hyperbilirubinemia DVT prophylaxis: As above GI prophylaxis: Protonix Diet: Regular Disposition: Pending transfer back to ICU tomorrow for t-PA administration Physician Review: Patient Assessed, Agree with Above Assessment and Plan Time Spent Managing PTS Care (In Minutes): 35
[2018-08-04 06:48] LABS: Absolute Lymphocytes (CBC) 0.8 K/uL (0.7-4.9); Absolute Monocytes 0.7 K/uL (0.1-1.3); Absolute Neutrophil 6.6 K/uL (1.8-8.0); Basophils % 0.2 % (0-1.3); Eosinophils % 1.5 % (0-4.4); Hematocrit 39.8 % (39.6-49.0); Lymphocytes % 9.6 % (15.3-44.8); MCH 31.6 pg (27.0-35.0); MCV 95.6 fL (80-100); MPV 9.2 fL (7.6-11.3); Monocytes % 8.7 % (3.3-12.3); RBC Red Blood Cell Count 4.17 M/uL (4.33-5.43)
[2018-08-04 07:19] LABS: Albumin 2.3 g/dL (3.4-5.0); Bilirubin Total 0.4 mg/dL (0.2-1.0); Potassium 3.5 mmol/L (3.5-5.1); Protein, Total 5.9 g/dL (6.4-8.2)
--- NOTE | 2018-08-04 07:41 | P.PN ---
Subjective Date of Service: 08/04/18 Chief Complaint: Massive pulmonary embolism Patient's condition is stable blood pressure is improving has some chest discomfort and shortness of breath scheduled for t-PA today Review of Systems General: Weakness Respiratory: Shortness of Breath Cardiovascular: Chest Pain Physical Examination - Vital Signs Temperature: 98.2 F Blood Pressure: 146/89 Pulse: 78 Respirations: 18 Pulse Ox (%): 95 - Physical Exam General: Alert, Oriented x3 HEENT: Atraumatic Neck: Supple Respiratory: Clear to auscultation bilaterally Cardiovascular: No edema, Normal S1 S2 Assessment & Plan - Problems (Diagnosis) (1) Pulmonary emboli Current Visit: Yes Status: Acute Plan: Patient is 87 years of age admitted with massive pulmonary embolism with right ventricular strain and dilatation in addition to pulmonary hypertension is scheduled for a t-PA today in the ICU 100 mg over 2 hr discuss with the patient and relatives the risks and benefit which include bleeding stroke the risks outweigh the benefits the blood pressure has improved patient was relatively hypotensive on admission and required IV fluids Qualifiers: Chronicity: acute Physician Review: Patient Assessed, Agree with Above Assessment and Plan
[2018-08-04 09:02] LABS: Protime INR 1.17
[2018-08-04] MEDS ORDERED: ALTEPLASE 100 ML IV ONE (09:30)
[2018-08-04] MEDS: SIMETHICONE 125 MG TAB PO SCH ×2 (10:14→20:15)
[2018-08-04] MEDS ORDERED: ALBUTEROL 2.5 MG/3 ML NEB SOL NEB PRN (11:23)
--- NOTE | 2018-08-04 14:10 | P.PN ---
Subjective Date of Service: 08/04/18 Chief Complaint: Massive pulmonary embolism Subjective: No new changes Patient seen and examined at bedside. at bedside. Chart reviewed and case discussed with nursing staff. Still reports shortness of breath with minimal movement No other complaints or concerns. Transfer to ICU for t-PA administration Review of Systems As noted Physical Examination - Vital Signs Temperature: 98.2 F Blood Pressure: 126/72 Pulse: 77 Respirations: 25 Pulse Ox (%): 99 - Physical Exam General: Alert, In no apparent distress, Oriented x3 HEENT: Atraumatic, PERRLA, EOMI Neck: Supple, JVD not distended Respiratory: Diminished Cardiovascular: Regular rate/rhythm, Normal S1 S2 Gastrointestinal: Normal bowel sounds, No tenderness Musculoskeletal: No tenderness Integumentary: No rashes Neurological: Normal speech, Normal tone, Normal affect Lymphatics: No axilla or inguinal lymphadenopathy Assessment And Plan - Plan This is a 87-year-old male with: Bilateral extensive pulmonary embolism with right ventricular strain Pulmonology consulted, appreciate recommendations. Patient transferred to the ICU for TPA administration, running. We will check 4 hr PTT, and start heparin when PTT in range. He will likely need to be discharged on oral anticoagulation and will need to be on lifelong anticoagulation the extent of embolism Left base pneumonia Antibiotics discontinued per pulmonology, normal white count now. Culture still pending. Patient denying any cough for sputum production Will continue to monitor Essential hypertension Blood pressure medications currently on hold due to being hypotensive. Right lower extremity deep vein thrombosis, extensive, likely source of thromboembolism As above Large hiatal hernia Hyperbilirubinemia DVT prophylaxis: As above GI prophylaxis: Protonix Diet: Regular Disposition: Monitor in ICU overnight after t-PA administration. Physician Review: Patient Assessed, Agree with Above Assessment and Plan Time Spent Managing PTS Care (In Minutes): 35
[2018-08-04] MEDS ORDERED: HEPARIN/D5W 25,000 UNIT/500 ML BAG IV SCH ×2 (18:00)
[2018-08-04] MEDS: levoFLOXacin 500 MG TAB PO SCH (20:15)
[2018-08-05] MEDS: RIVAROXABAN 15 MG TABLET PO SCH ×2 (06:15→20:18)
--- NOTE | 2018-08-05 08:10 | P.PN ---
Subjective Date of Service: 08/05/18 Chief Complaint: Massive pulmonary embolism Patient is doing better shortness of breath has improved status post t-PA hemodynamically all stable Review of Systems General: Weakness Respiratory: Shortness of Breath Physical Examination - Vital Signs Temperature: 97.8 F Blood Pressure: 114/66 Pulse: 66 Respirations: 19 Pulse Ox (%): 98 - Physical Exam General: Alert, Oriented x3 Respiratory: Clear to auscultation bilaterally Cardiovascular: No edema, Regular rate/rhythm, Edema Assessment & Plan - Problems (Diagnosis) (1) Pulmonary emboli Current Visit: Yes Status: Acute Plan: Patient admitted with massive pulmonary embolism with right ventricular strain is status post t-PA currently doing much better shortness of breath has improved blood pressure still low ovoid all antihypertensive agents recommend Xarelto or Eliquis whichever 1 is covered he will need to be on lifelong anticoagulation due to the severity of his pulmonary embolism inform the patient to Dc all his anti hypertensive agents including Lasix for now revealed reviewed in 2 weeks Qualifiers: Chronicity: acute Physician Review: Patient Assessed, Agree with Above Assessment and Plan
--- NOTE | 2018-08-05 09:05 | P.PN ---
Date of Service: 08/05/18 Patient is clinically doing well. Clinical picture improved after tPA. No signs of bleeding. Stable for transfer to general medical floor and we are needing ICU bed for other patients. Plan to DC heparin at 6:00 a.m. and start Xarelto at that time. Repeat Echocardiogram pending according to patient.
[2018-08-05] MEDS: SIMETHICONE 125 MG TAB PO SCH ×2 (10:53→20:18)
[2018-08-05] MEDS: levoFLOXacin 500 MG TAB PO SCH (10:54)
--- NOTE | 2018-08-05 15:49 | P.PN ---
Subjective Date of Service: 08/05/18 Chief Complaint: Massive pulmonary embolism Subjective: No C/O voiced, Improving Patient seen and examined at bedside. at bedside. Chart reviewed and case discussed with nursing staff. He is now status post t-PA administration. Transferred back to the floor from the ICU. He has been transitioned to Xarelto from heparin. Reports improved breathing at this time Review of Systems As noted Physical Examination - Vital Signs Temperature: 98.5 F Blood Pressure: 140/73 Pulse: 78 Respirations: 22 Pulse Ox (%): 98 - Physical Exam General: Alert, In no apparent distress, Oriented x3 HEENT: Atraumatic, PERRLA, EOMI Neck: Supple, JVD not distended Respiratory: Clear to auscultation bilaterally, Normal air movement Cardiovascular: Regular rate/rhythm, Normal S1 S2 Gastrointestinal: Normal bowel sounds, No tenderness Musculoskeletal: No tenderness Integumentary: No rashes Neurological: Normal speech, Normal tone, Normal affect Lymphatics: No axilla or inguinal lymphadenopathy Assessment And Plan - Plan This is a 87-year-old male with: Bilateral extensive pulmonary embolism with right ventricular strain Pulmonology consulted, appreciate recommendations. Patient transferred back to the floor after t-PA administration. He has now been converted to Xarelto from the heparin drip. Doing well, no bleeding noted. He will likely need to be discharged on oral Xarelto and will need to be on lifelong anticoagulation the extent of embolism Left base pneumonia Antibiotics discontinued per pulmonology, normal white count now. Patient denying any cough for sputum production Will continue to monitor Urinary tract infection Urine cultures positive for Morganella and enterococcus Patient currently on oral Levaquin. Will continue for a course of 7 days. Essential hypertension Blood pressure medications currently on hold due to being hypotensive. Hold all blood pressure medications on discharge. Right lower extremity deep vein thrombosis, extensive, likely source of thromboembolism As above Large hiatal hernia Hyperbilirubinemia DVT prophylaxis: As above GI prophylaxis: Protonix Diet: Regular Disposition: Monitor overnight on Xarelto. Likely discharge in the next 24-48 hr on oral anticoagulation with Xarelto Physician Review: Patient Assessed, Agree with Above Assessment and Plan Time Spent Managing PTS Care (In Minutes): 35
[2018-08-06] MEDS: RIVAROXABAN 15 MG TABLET PO SCH (10:54)
[2018-08-06] MEDS: SIMETHICONE 125 MG TAB PO SCH (10:54)
[2018-08-06] MEDS: levoFLOXacin 500 MG TAB PO SCH (10:55)
--- NOTE | 2018-08-13 11:42 | P.DS ---
Admission Date: 08/01/18 Discharge Date: 08/06/18 Disposition: ROUTINE DISCHARGE Discharge Condition: GOOD Reason for Admission: Massive pulmonary embolism Consultations: Pulmonary, Dr. Lanier Procedures: 08/04/2018: T-Pa administration for large PE Brief History of Present Illness: : The patient is an 87-year-old male with past medical history of hypertension , who was in his usual state of health until 4 weeks prior to admission when the patient had sudden onset of shortness of breath. The patient was seen by primary care physician, thought to have issues with his heart and was sent to a pigs feet finisher. The patient's symptoms were worse with exertion. He denied any cough, sputum production, fevers, chills. No ill contacts. The patient's symptoms improved with rest. The patient denies any prolonged car rides or airplane flights. Otherwise, his symptoms were constant, moderate, and progressively worsening. The patient was seen by Cardiology recently, had a cardiac stress test done which was negative. Due to the patient's worsening symptoms, the was concerned and therefore brought him into the ER for further evaluation. Upon arrival, the patient's vital signs were stable. He was saturating 92% on room air which improved to 95% on 3 L. His workup revealed elevated white count of 12,000. BNP was 2000. Imaging studies, chest x-ray shows left base opacification from infiltrate, atelectasis, scarring or combination. CT angio chest was done for further evaluation and revealed extensive pulmonary embolic disease bilaterally and atelectasis and infiltrate present in the left lower lobe and significant hiatal hernia. The patient was given Lovenox and then referred for admission. When seen in the ER, the patient was awake, alert, oriented x3, in some mild respiratory distress Hospital Course: Bilateral extensive pulmonary embolism with right ventricular strain He was found to have a large pulmonary embolism, pulmonary was consulted. He was started on a heparin drip and ECHO was done. He was found to have right ventriuclar strain, therefore he was transferred to the ICU for 1 night for T- Pa administration. He tolerated the T-Pa well, no bleeding noted and his respiratory symptoms improved. He was transferred back to the floor, monitored for 1 more night, which he did well without any bleeding. He was then discharged on oral xarelto for which he will need to be on for lifelong due to the extent of the embolism. Left base pneumonia s/p IV antibiotics initially. symptomatic and clinical improvement, IV antibiotics discontinued and no need for antibiotics on discharge from this point of view. Urinary tract infection Urine cultures positive for Morganella and enterococcus Patient currently on oral Levaquin. Discharged wiht PO levaqiun to complete a 7 day course. Essential hypertension He was intially hypotensive due to his large PE, his BP medications were held. Once his blood pressure stabalized, his home BP medicatinos were restarted. No changes made to his medication on discharge. Right lower extremity deep vein thrombosis, extensive, likely source of thromboembolism As above Vital Signs/Physical Exam: Temp Pulse Resp BP Pulse Ox 99.6 F 86 24 H 139/78 98 08/06/18 12:00 08/06/18 12:00 08/06/18 12:00 08/06/18 12:00 08/05/18 15:49 General: Alert, In no apparent distress HEENT: Atraumatic, PERRLA, EOMI Neck: Supple, JVD not distended Respiratory: Clear to auscultation bilaterally, Normal air movement Cardiovascular: Regular rate/rhythm, Normal S1 S2 Gastrointestinal: Normal bowel sounds, No tenderness Musculoskeletal: No tenderness Integumentary: No rashes Neurological: Normal speech, Normal tone, Normal affect Lymphatics: No axilla or inguinal lymphadenopathy Laboratory Data at Discharge: WBC 8.3 K/uL (4.3-10.9) D 08/04/18 06:00 Hgb 13.2 g/dL (13.6-17.9) L 08/04/18 06:00 Hct 39.8 % (39.6-49.0) 08/04/18 06:00 Plt Count 151 K/uL (152-406) L 08/04/18 06:00 PT 13.8 SECONDS (9.5-12.5) H 08/04/18 08:07 INR 1.17 08/04/18 08:07 APTT 63.0 SECONDS (24.3-36.9) H 08/05/18 03:29 Sodium 142 mmol/L (136-145) 08/04/18 06:00 Potassium 3.5 mmol/L (3.5-5.1) 08/04/18 06:00 BUN 25 mg/dL (7-18) H 08/04/18 06:00 Creatinine 1.20 mg/dL (0.55-1.3) 08/04/18 06:00 Glucose 101 mg/dL (74-106) 08/04/18 06:00 Magnesium 2.5 mg/dL (1.8-2.4) H 08/01/18 13:36 Total Bilirubin 0.4 mg/dL (0.2-1.0) 08/04/18 06:00 AST 20 U/L (15-37) 08/04/18 06:00 ALT 23 U/L (12-78) 08/04/18 06:00 Alkaline Phosphatase 75 U/L (45-117) 08/04/18 06:00 Home Medications: Rivaroxaban [Xarelto] 15 mg PO BID 21 Days #42 tablet 08/02/18 Glucosamine/D3/Boswellia Kasie [Glucosamine Daily Complex Tab] 1 tab PO BEDTIME 08/12/18 Lactobacillus Combination No.4 [Probiotic] 1 cap PO BEDTIME 08/12/18 New Medications: Rivaroxaban [Xarelto] 15 mg PO BID 21 Days #42 tablet Patient Discharge Instructions: Please follow up with the primary care physician in 1 week. Please follow up with pulmonology, Dr. Lanier in 2 weeks. New medications: Blood thinners, Xarelto sent to pharmacy. Please take as directed. We also sent a prescription for antibiotics, Levaquin to complete a course for 4 more days for your urinary tract infection. Diet: AHA Activity: Ad argelia Followup: Tod Lanier MD [ACTIVE - CAN ADMIT] - 1-2 Weeks (call to schedule an appointment) Terry Conde MD [Primary Care Provider] - 1-2 Weeks (call to schedule an appointment) Physician Review: Patient Assessed, Agree with Above Assessment and Plan Time spent managing pt's care (in minutes): 55
== END 2018-08-06 14:57 | disposition home or self-care (01) | DRG 175 ==
LOC: ER 12:47 → ERHOLD 16:27 → 4TH 17:48 → 3RD-ICU 18:51 → 4TH 08-02 10:16 → 3RD-ICU 08-04 07:58 → 4TH 08-05 04:50
PROVIDERS: ADMIT Family Medicine; ATTEND Family Medicine
DX: I26.99 Other pulmonary embolism without acute cor pulmonale (principal); J18.9 Pneumonia, unspecified organism; N39.0 Urinary tract infection, site not specified; I82.401 Acute embolism and thrombosis of unspecified deep veins of right lower extremity; B95.2 Enterococcus as the cause of diseases classified elsewhere; B96.89 Other specified bacterial agents as the cause of diseases classified elsewhere; I10 Essential (primary) hypertension; E83.41 Hypermagnesemia; K44.9 Diaphragmatic hernia without obstruction or gangrene; E80.6 Other disorders of bilirubin metabolism; I95.9 Hypotension, unspecified
CPT/HCPCS: 36415; 71045; 71275; 80048; 80053; 80076; 81003; 81015; 83735; 83880; 84484; 85025; 85610; 85730; 87077; 87086; 87088; 87186; 93005; 93306; 93970; 94640; 94760; 96372; 99285; J1650; J2997; J7030; Q9967

== ENCOUNTER 2018-08-12 00:21 | Inpatient (IN) | payer OTHER, MEDICARE ==
[2018-08-12 01:29] LABS: Absolute Lymphocytes (CBC) 1.1 K/uL (0.7-4.9); Absolute Monocytes 0.6 K/uL (0.1-1.3); Absolute Neutrophil 8.5 K/uL (1.8-8.0); Basophils % 0.4 % (0-1.3); Eosinophils % 0.8 % (0-4.4); Hematocrit 39.4 % (39.6-49.0); Lymphocytes % 10.5 % (15.3-44.8); MCH 31.8 pg (27.0-35.0); MPV 7.9 fL (7.6-11.3); Monocytes % 6.2 % (3.3-12.3); RBC Red Blood Cell Count 4.23 M/uL (4.33-5.43)
[2018-08-12 01:35] LABS: Protime INR 2.51
[2018-08-12 01:46] LABS: Albumin 2.9 g/dL (3.4-5.0); Bilirubin Direct 0.2 mg/dL (0-0.2); Bilirubin Total 0.6 mg/dL (0.2-1.0); Magnesium 2.2 mg/dL (1.8-2.4); Potassium 3.7 mmol/L (3.5-5.1); Protein, Total 6.7 g/dL (6.4-8.2)
--- NOTE | 2018-08-12 04:27 | EDPHYS ---
Physician Documentation [facility] Name: Dev Sanz Age: 87 yrs Sex: Male : 1930 Arrival Date: 08/12/2018 Time: 00:29 Bed 7 Private MD: ED Physician Uli Harrison HPI: 08/12 03:26 This 87 yrs old Male presents to ER via EMS with complaints of right upper tw4 arm pain. Historical: - Allergies: 00:39 No Known Allergies; jd3 - Home Meds: 00:39 Xarelto oral oral [Active]; jd3 - PMHx: 00:39 Hypertension; hiatal hernia; jd3 - PSHx: 00:39 None; jd3 - Immunization history:: Adult Immunizations up to date, Pneumococcal vaccine is up to date, Flu vaccine is up to date. - Social history:: Smoking status: Patient/guardian denies using tobacco. - Ebola Screening: : Patient negative for fever greater than or equal to 101.5 degrees Fahrenheit, and additional compatible Ebola Virus Disease symptoms. ROS: 04:26 Constitutional: Negative for fever, chills, and weight loss, Eyes: Negative for injury, tw4 pain, redness, and discharge, Cardiovascular: Negative for chest pain, palpitations, and edema, Respiratory: Negative for shortness of breath, cough, wheezing, and pleuritic chest pain, Abdomen/GI: Negative for abdominal pain, nausea, vomiting, diarrhea, and constipation, Back: Negative for injury and pain, Skin: Negative for injury, rash, and discoloration, Neuro: Negative for headache, weakness, numbness, tingling, and seizure. 04:26 MS/extremity: Positive for erythema, swelling, tenderness. Exam: 04:26 Constitutional: This is a well developed, well nourished patient who is awake, alert, tw4 and in no acute distress. Head/Face: Normocephalic, atraumatic. Chest/axilla: Normal chest wall appearance and motion. Nontender with no deformity. No lesions are appreciated. Cardiovascular: Regular rate and rhythm with a normal S1 and S2. No gallops, murmurs, or rubs. Normal PMI, no JVD. No pulse deficits. Respiratory: Lungs have equal breath sounds bilaterally, clear to auscultation and percussion. No rales, rhonchi or wheezes noted. No increased work of breathing, no retractions or nasal flaring. Abdomen/GI: Soft, non-tender, with normal bowel sounds. No distension or tympany. No guarding or rebound. No evidence of tenderness throughout. Back: No spinal tenderness. No costovertebral tenderness. Full range of motion. 04:26 Musculoskeletal/extremity: Extremities: noted in the right antecubital area and dorsal aspect of right forearm: Vital Signs: 00:39 BP 159 / 97; Pulse 96; Resp 20 S; Temp 98.1(O); Pulse Ox 96% on R/A; Weight 86.18 kg jd3 (R); Height 5 ft. 9 in. (175.26 cm) (R); Pain 6/10; 02:20 BP 149 / 99; Pulse 87; Resp 19 S; Pulse Ox 96% on R/A; jd3 03:07 BP 165 / 104; Pulse 91; Resp 18 S; Pulse Ox 96% on R/A; jd3 04:17 BP 148 / 93; Pulse 88; Resp 19 S; Pulse Ox 97% on R/A; jd3 05:14 BP 156 / 90; Pulse 76; Resp 19 S; Pulse Ox 97% on R/A; jd3 00:39 Body Mass Index 28.06 (86.18 kg, 175.26 cm) jd3 MDM: 00:43 Patient medically screened. tw4 04:26 Differential diagnosis: contusion, tendonitis, cellulitis. Data reviewed: vital signs, tw4 nurses notes. Counseling: I had a detailed discussion with the patient and/or guardian regarding: the historical points, exam findings, and any diagnostic results supporting the discharge/admit diagnosis. Physician consultation: Svetlana Varela MD was contacted at 04:30, regarding patient's condition, and will see patient in inpatient room. 08/12 01:26 Order name: Basic Metabolic Panel; Complete Time: 03: EDMS 08/12 01:26 Order name: Liver (Hepatic) Function; Complete Time: EDMS 08/12 01:26 Order name: Magnesium; Complete Time: 04: EDMS 08/12 01:26 Order name: Lipase; Complete Time: 04: EDMS 08/12 01:26 Order name: CBC with Automated Diff; Complete Time: 03: EDMS 08/12 01:26 Order name: Protime (+INR); Complete Time: 03:27 EDMS 08/12 01:26 Order name: PTT, Activated Partial Thromb; Complete Time: 04:25 EDMS 08/12 00:45 Order name: Cardiac monitoring; Complete Time: 00:47 tw4 08/12 00:45 Order name: IV Saline Lock; Complete Time: 01:26 tw4 08/12 00:45 Order name: Labs collected and sent; Complete Time: 01:26 tw4 08/12 00:45 Order name: O2 Per Protocol; Complete Time: 00:47 tw4 08/12 00:45 Order name: O2 Sat Monitoring; Complete Time: 00:47 tw4 08/12 02:05 Order name: Extremity Venous Uni Ltd EDMD 08/12 05:53 Order name: CONS Physician Consult EDMD 08/12 05:53 Order name: Heart Healthy EDMS 08/12 05:53 Order name: Basic Metabolic Panel EDMD 08/12 05:53 Order name: Basic Metabolic Panel EDMD 08/12 05:53 Order name: CBC with Automated Diff EDMS 08/12 05:53 Order name: CBC with Automated Diff EDMD Administered Medications: 04:52 Drug: Zosyn 3.375 grams Route: IVPB; Infused Over: 60 mins; Site: left forearm; jd3 05:43 Follow up: Response: No adverse reaction; IV Status: Completed infusion jd3 05:40 Drug: vancoMYCIN 1 grams Route: IVPB; Infused Over: 2 hrs; Site: left forearm; jd3 05:43 Follow up: Response: No adverse reaction; IV Status: Infusion continued upon admission jd3 Disposition: 08/12/18 04:26 Hospitalization ordered by Svetlana Varela for Inpatient Admission. Preliminary diagnosis is Cellulitis of right upper limb. - Bed requested for Telemetry/MedSurg (Inpatient). - Status is Inpatient Admission. fc - Condition is Stable. - Problem is new. - Symptoms are unchanged. UTI on Admission? No Signatures: Dispatcher [employer] EDMS Roxana Faulkner RN RN fc Garcia, Cindy, RN RN cg Davies, Jonathon, RN RN jUli Corrigan MD MD tw4 Corrections: (The following items were deleted from the chart) 02:19 02:10 CBC+H.LAB.BRZ ordered. EDMS EDMS 02: 02:10 PROTIME (+INR)+COAG.LAB.BRZ ordered. EDMS EDMS 02: 02:10 PTT, ACTIVATED+COAG.LAB.BRZ ordered. EDMS EDMS 02: 02:10 BASIC METABOLIC PANEL+C.LAB.BRZ ordered. EDMS EDMS 02: 02:10 HEPATIC FUNCTION+C.LAB.BRZ ordered. EDMS EDMS 02: 02:10 LIPASE+C.LAB.BRZ ordered. EDMS EDMS 02: 02:10 MAGNESIUM+C.LAB.BRZ ordered. EDMS EDMS 03:01 02:10 Extrem Venous W Compression Sae+US.RAD.BRZ ordered. EDMS EDMS 05:30 04:26 Hospitalization Ordered by Svetlana Varela MD for Inpatient Admission. Preliminary cg diagnosis is Cellulitis of right upper limb. Bed requested for Telemetry/MedSurg (Inpatient). Status is Inpatient Admission. Condition is Stable. Problem is new. Symptoms are unchanged. UTI on Admission? No. tw4 06:31 05:30 08/12/2018 04:26 Hospitalization Ordered by Svetlana Varela MD for Inpatient fc Admission. Preliminary diagnosis is Cellulitis of right upper limb. Bed requested for Telemetry/MedSurg (Inpatient). Status is Inpatient Admission. Condition is Stable. Problem is new. Symptoms are unchanged. UTI on Admission? No. cg
--- NOTE | 2018-08-12 04:27 | ER ---
Nurse's Notes [facility] Name: Dev Sanz Age: 87 yrs Sex: Male : 1930 Arrival Date: 08/12/2018 Time: 00:29 Bed 7 Private MD: Diagnosis: Cellulitis of right upper limb Presentation: 08/12 00:29 Presenting complaint: EMS states: "he was discharged from here last Thursday with clots jd3 in his lungs. he was given clot busting medications, but today his right arm is swollen and painful. his reported that the right arm was the arm with the IV when he was here recently.". Transition of care: patient was not received from another setting of care. Onset of symptoms was August 11, 2018. Risk Assessment: Do you want to hurt yourself or someone else? Patient reports no desire to harm self or others. Initial Sepsis Screen: Does the patient meet any 2 criteria? HR > 90 bpm. No. Patient's initial sepsis screen is negative. Does the patient have a suspected source of infection? No. Patient's initial sepsis screen is negative. Care prior to arrival: Glucose check: 120. 00:29 Method Of Arrival: EMS: [facility] jd3 00:29 Acuity: DANILO 2 jd3 Historical: - Allergies: 00:39 No Known Allergies; jd3 - Home Meds: 00:39 Xarelto oral oral [Active]; jd3 - PMHx: 00:39 Hypertension; hiatal hernia; jd3 - PSHx: 00:39 None; jd3 - Immunization history:: Adult Immunizations up to date, Pneumococcal vaccine is up to date, Flu vaccine is up to date. - Social history:: Smoking status: Patient/guardian denies using tobacco. - Ebola Screening: : Patient negative for fever greater than or equal to 101.5 degrees Fahrenheit, and additional compatible Ebola Virus Disease symptoms. Screenin:42 Abuse screen: Denies threats or abuse. Nutritional screening: No deficits noted. jd3 Tuberculosis screening: No symptoms or risk factors identified. Fall Risk Ambulatory Aid- Crutches/Cane/Walker (15 pts). Gait- Weak (10 pts.). Mental Status- Oriented to own ability (0 pts). Total Garcia Fall Scale indicates Low Risk Score (25-44 pts). Fall prevention measures have been instituted. Side Rails Up X 2 Placed close to Nursing Station Frequent Obs/Assesments occuring Family Present and informed to notify staff if they need to leave bedside. Assessment: 00:40 General: Appears uncomfortable, Behavior is calm, cooperative, appropriate for age. jd3 Pain: Complains of pain in right arm Quality of pain is described as aching. Neuro: Level of Consciousness is awake, alert, obeys commands, Oriented to person, place, time, situation. Cardiovascular: Capillary refill < 3 seconds Patient's skin is warm and dry. Respiratory: Airway is patent Respiratory effort is even, unlabored, Respiratory pattern is regular, symmetrical. GI: Abdomen is round non-distended. : No signs and/or symptoms were reported regarding the genitourinary system. EENT: No signs and/or symptoms were reported regarding the EENT system. Derm: Skin is intact, Skin is dry, Skin is normal, Skin temperature is warm. Musculoskeletal: Circulation, motion, and sensation intact. Range of motion: intact in all extremities. 02:21 Reassessment: Patient appears in no apparent distress at this time. Patient and/or jd3 family updated on plan of care and expected duration. Pain level reassessed. Patient is alert, oriented x 3, equal unlabored respirations, skin warm/dry/pink. ultrasound at the bedside. 03:07 Reassessment: Patient appears in no apparent distress at this time. Patient and/or jd3 family updated on plan of care and expected duration. Pain level reassessed. Patient is alert, oriented x 3, equal unlabored respirations, skin warm/dry/pink. 04:16 Reassessment: Patient appears in no apparent distress at this time. Patient and/or jd3 family updated on plan of care and expected duration. Pain level reassessed. Patient is alert, oriented x 3, equal unlabored respirations, skin warm/dry/pink. 05:13 Reassessment: Patient appears in no apparent distress at this time. Patient and/or jd3 family updated on plan of care and expected duration. Pain level reassessed. Patient is alert, oriented x 3, equal unlabored respirations, skin warm/dry/pink. 06:07 Reassessment: Patient appears in no apparent distress at this time. Patient and/or jd3 family updated on plan of care and expected duration. Pain level reassessed. Patient is alert, oriented x 3, equal unlabored respirations, skin warm/dry/pink. Vital Signs: 00:39 BP 159 / 97; Pulse 96; Resp 20 S; Temp 98.1(O); Pulse Ox 96% on R/A; Weight 86.18 kg jd3 (R); Height 5 ft. 9 in. (175.26 cm) (R); Pain 6/10; 02:20 BP 149 / 99; Pulse 87; Resp 19 S; Pulse Ox 96% on R/A; jd3 03:07 BP 165 / 104; Pulse 91; Resp 18 S; Pulse Ox 96% on R/A; jd3 04:17 BP 148 / 93; Pulse 88; Resp 19 S; Pulse Ox 97% on R/A; jd3 05:14 BP 156 / 90; Pulse 76; Resp 19 S; Pulse Ox 97% on R/A; jd3 00:39 Body Mass Index 28.06 (86.18 kg, 175.26 cm) jd3 ED Course: 00:29 Patient arrived in ED. jd3 00:29 Anibal Orozco, RN is Primary Nurse. jd3 00:34 Triage completed. jd3 00:40 Arm band placed on. jd3 00:43 Uli Tariq MD is Attending Physician. tw4 00:43 Patient has correct armband on for positive identification. Placed in gown. Bed in low jd3 position. Call light in reach. Side rails up X2. Adult w/ patient. 01:25 Missed attempt(s): 20 gauge in left antecubital area. Bleeding controlled, band aid jd3 applied, catheter tip intact. 01:27 Inserted saline lock: 20 gauge in left forearm, using aseptic technique. Blood jd3 collected. 01:29 Warm blanket given. jd3 03:01 Extremity Venous Uni Ltd In Process Unspecified. EDMS 03:02 Note: US DONE BEDSIDE IN ER. COMPLETED - TOLERATED WELL. PRELIM GIVEN TO DR TARIQ. lc3 04:25 Svetlana Varela MD is Hospitalizing Provider. tw4 05:46 No provider procedures requiring assistance completed. Patient admitted, IV remains in jd3 place. Administered Medications: 04:52 Drug: Zosyn 3.375 grams Route: IVPB; Infused Over: 60 mins; Site: left forearm; jd3 05:43 Follow up: Response: No adverse reaction; IV Status: Completed infusion jd3 05:40 Drug: vancoMYCIN 1 grams Route: IVPB; Infused Over: 2 hrs; Site: left forearm; jd3 05:43 Follow up: Response: No adverse reaction; IV Status: Infusion continued upon admission jd3 Outcome: 04:26 Decision to Hospitalize by Provider. tw4 06:04 Admitted to Med/surg accompanied by tech, via stretcher, room 216, with chart, Report jd3 called to Didi PATRICIO 06:04 Condition: stable 06:04 Instructed on the need for admit, Demonstrated understanding of instructions. 06:31 Patient left the ED. fc Signatures: Dispatcher [employer] EDMS Roxana Faulkner RN RN An Swenson Jonathon, RN RN jUli Corrigan MD MD tw4
[2018-08-12] MEDS ORDERED: VANCOMYCIN 1 GM/250 ML BAG ONE (04:53)
[2018-08-12] MEDS ORDERED: PIPER/TAZO/NS 3.375gm 3.375 GM/100 ML BAG ONE (04:53)
--- NOTE | 2018-08-12 05:34 | P.HP ---
Certification for Inpatient Patient admitted to: Observation With expected LOS: <2 Midnights Practitioner: I am a practitioner with admitting privileges, knowledge of patient current condition, hospital course, and medical plan of care. Services: Services provided to patient in accordance with Admission requirements found in Title 42 Section 412.3 of the Code of Federal Regulations Patient History Date of Service: 08/12/18 Reason for admission: right arm hematoma History of Present Illness: Mr Sanz is an 87 years old male with history of HTN, hiatal hernia who was recently admitted to this hospital due to PE. He was discharged home on Xarelto. The patient was doing well until yesterday when suddenly, his right arm start to be swollen. He denied any trauma. This was the arm where he had his IV during hospitalization. He denied any tingling or numnes in his fingers. He denied fever or chills. Lab work shows normal WBC count. Right arm US remarkable for a complex fluid collection most likely consistent with an hematoma. Allergies No Known Allergies Allergy (Unverified 08/01/18 18:34) Home medications list reviewed: Yes Home Medications: Glucosamine HCl/Chondr Diane A Na [Osteo Bi-Flex Caplet] 1 each PO DAILY 08/01/18 L.acidoph,Paracasei, B.lactis [Probiotic] 1 each PO DAILY 08/01/18 Simethicone [Gas-X] 1 cap PO BID 08/01/18 Rivaroxaban [Xarelto] 15 mg PO BID 21 Days #42 tablet 08/02/18 Rivaroxaban [Xarelto] 20 mg PO DAILY #30 tablet 08/02/18 Levofloxacin [Levaquin] 500 mg PO DAILY #4 tablet 08/06/18 - Past Medical/Surgical History Diabetic: No -: HTN -: anemia -: bladder retention -: hiatal hernia -: Greenlight prostate laser -: bilateral cataract - Family History Father -: Cancer Notes: Bladder CA Mother -: Heart disease - Social History Alcohol use: No CD- Drugs: No Caffeine use: Yes Place of Residence: Home Review of Systems 10-point ROS is otherwise unremarkable Physical Examination - Physical Exam General: Alert, In no apparent distress HEENT: Atraumatic, PERRLA, Mucous membr. moist/pink, EOMI, Sclerae nonicteric Neck: Supple, 2+ carotid pulse no bruit, No LAD, Without JVD or thyroid abnormality Respiratory: Clear to auscultation bilaterally, Normal air movement Cardiovascular: Regular rate/rhythm, Normal S1 S2 Gastrointestinal: Normal bowel sounds, No tenderness Musculoskeletal: No tenderness, Swelling (right arm), Warmth (right arm) Integumentary: No rashes Neurological: Normal speech, Normal strength at 5/5 x4 extr, Normal tone, Normal affect Lymphatics: No axilla or inguinal lymphadenopathy - Studies Laboratory Data (last 24 hrs) 08/12/18 01:19: PT 29.9 H, INR 2.51, APTT 41.9 H 08/12/18 01:19: WBC 10.4 D, Hgb 13.5 L, Hct 39.4 L, Plt Count 308 D 08/12/18 01:19: Sodium 139, Potassium 3.7, BUN 15, Creatinine 1.10, Glucose 115 H, Magnesium 2.2, Total Bilirubin 0.6, AST 19, ALT 35, Alkaline Phosphatase 88, Lipase 123 08/12/18 00:45: PT Cancelled, INR Cancelled, APTT Cancelled 08/12/18 00:45: WBC Cancelled, Hgb Cancelled, Hct Cancelled, Plt Count Cancelled 08/12/18 00:45: Sodium Cancelled, Potassium Cancelled, BUN Cancelled, Creatinine Cancelled, Glucose Cancelled, Magnesium Cancelled, Total Bilirubin Cancelled, AST Cancelled, ALT Cancelled, Alkaline Phosphatase Cancelled, Lipase Cancelled Assessment and Plan - Problems (Diagnosis) (1) History of pulmonary embolism Current Visit: Yes Status: Acute (2) right arm hematoma Current Visit: Yes Status: Acute - Plan The patient will be admitted to the hospital due to right arm hematoma. right upper extremity is significantly swelling. Radial pulse palpable, the patient is able to move his fingers, no numbnes or tingling. Watch for compartimental syndrome. Will order empiric abx treatment, consult Dr Sosa for evaluation and recommendations. - Advance Directives Does patient have a Living Will: No Does patient have a Durable POA for Healthcare: No - Code Status/Comfort Care Code Status Assessed: Yes Code Status: Full Code
[2018-08-12] MEDS ORDERED: ACETAMINOPHEN 500 MG TAB PO PRN (05:52)
[2018-08-12] MEDS ORDERED: TRAMADOL HCL 50 MG TAB PO PRN (05:52)
[2018-08-12] MEDS ORDERED: ONDANSETRON 4 MG/2 ML VIAL IV PRN (05:52)
[2018-08-12] MEDS ORDERED: VANCOMYCIN 500 MG in NA CHLORIDE 0.9% 100 ML IVPB ONE (07:00)
[2018-08-12] MEDS ORDERED: POTASSIUM CL SA 10 MEQ TAB PO ONE (08:00)
[2018-08-12] MEDS: Levofloxacin 750mg IV 750 MG/150 ML BAG IV SCH (08:45)
--- NOTE | 2018-08-12 08:51 | RAD REPORT ---
EXAM DESCRIPTION: US - Extremity Venous Uni Ltd - 08/12/2018 3:05 am CLINICAL HISTORY: RUE SWELLING S/P IV Right upper extremity pain and swelling COMPARISON: Extrem Venous W Compress Sae dated 08/01/2018 FINDINGS: Right upper extremity venous system was interrogated with Doppler technique. Normal flow, compressibility and augmentation was noted. There is no DVT present. IMPRESSION: No evidence of right upper extremity deep venous thrombosis.
[2018-08-12] MEDS ORDERED: VANCOMYCIN 1 GM in NA CHLORIDE 0.9% 500 ML IVPB SCH (09:00)
[2018-08-12] MEDS ORDERED: HEPARIN/D5W 25,000 UNIT/500 ML BAG IV SCH (13:00)
--- NOTE | 2018-08-12 14:38 | CON ---
Date of Consultation: 08/12/2018 Brief History Of Present Illness: The patient is an 87-year-old male with a history of hyp ertension and hiatal hernia, who was recently admitted on 08/01 with a diagnosis of pulmonary embolus , significant pulmonary emboli. He was discharged home on Xarelto at that time and he had been doing well until yesterday when he developed right arm swelling at approximately the elbow joint. He bobo es any trauma. He had multiple sticks here for blood draws and so forth, but did not notice any mo ges during that time. He denies any obvious trauma at that time or subsequent to that. He just note d the swelling. He has had no symptomatic complaints with respect to pain, numbness, tingling, sensa tion changes, motor changes. No sensorineural defects appreciated in the arm either proximal or dist al to this area. He has not had similar episodes before in the past. He had a right arm ultrasound in the ER, which was consistent with a complex fluid collection; however, I do not have access to thi s record and cannot view the images as well. Past Medical History: Significant for hypertension, anemia, urinary retention, hiatal hernia, bilate ral cataracts. Past Surgical History: Includes GreenLight prostate procedure and cataract repair. Allergies: NO KNOWN DRUG ALLERGIES. Medications At Home: Include glucosamine, probiotic, Gas-X, Xarelto 15 p.o. b.i.d., Xarelto 20 mg p. o. daily, and Levaquin 500 p.o. daily. Family History: His father had bladder cancer. His mother had heart disease. Social History: He denies smoking, alcohol, or recreational drug use. Review of Systems: A 10-point review of systems other than HPI, denies. He has no shortness of breath or chest pain or any other constitutional complaints at this time. Physical Examination: Vital Signs: At the time of my examination, his blood pressure is 136/80, his pulse is 80, his respi ratory rate 18, temperature 98.0. His BMI is 28.1. General: He is awake, alert, and oriented. Psychiatric: He is appropriately conversive. HEENT: Normocephalic. His sclerae are anicteric. His mucous membranes are moist. His oropharynx i s clear. Neck: Supple with no JVD. Pulmonary: Clear to auscultation bilaterally. Cardiovascular: Regular rate and rhythm. Normal S1, S2. GI: Soft, no tenderness. Musculoskeletal: He has significant right arm swelling beginning at the antecubital area with slight enlargement proximally. There is some mild bruising of this area on the medial aspect, but this wise s not extend down the arm. However, the edema does extend all the way to the fingers. There is no p ain with passive or active flexion, extension, or movement of the hand. His hand exam was essentiall y normal at this time. There is skin changes consistent with mild bruising in an inconsistent patter n more scattered pattern. There is no evidence of cellulitis in this area and has minimal tenderness to palpation. Laboratory Data: Reveals a white blood cell count of 10.4, hemoglobin 13.5, hematocrit of 39.4, plat elet count is 308, neutrophils 82%. His PT was 29.9. PTT was 41.94. His INR was 2.51. His chemistry laboratory technician ry showed a sodium 139, potassium 3.7, chloride 102, carbon dioxide 31, BUN 15, creatinine 1.1, gluco se is 115, calcium 8.5, magnesium 2.2, total bilirubin 0.6, direct component 0.2. AST 19, ALT 35, al kaline phosphatase 88. Lipase is 123. He had imaging performed which included an extremity venous s tudy, which was officially read as no DVT in the right upper extremity. Assessment And Plan: This is an 87-year-old male who presents with a likely hematoma due to anticoag ulation of the right upper extremity. I recommend elevation, gentle wrapping with Miguel bandage, and c ontinued hand usage with stress ball to help reduce this flow. In addition, because he is high risk for PE, I recommend continuation of his anticoagulation and we will monitor this for signs of expansi on or worsening symptoms or signs of compartment syndrome. Continue medical management per Dr. Dempsey . Thank you for this interesting consult. REMY/GENIE Voice ID: [id number] Report ID: [id number]
[2018-08-12] MEDS: HEPARIN/D5W 25,000 UNIT/500 ML BAG IV SCH (15:33)
[2018-08-12 16:34] LABS: Urine Appearance CLEAR; Urine Bilirubin NEGATIVE (NEG); Urine Blood NEGATIVE (NEG); Urine Color YELLOW; Urine Glucose NEGATIVE (NEG); Urine Protein NEGATIVE (NEG); Urine Specific Gravity 1.015 (1.005-1.030); Urine pH 7.5 (5.0-7.0)
[2018-08-12 16:36] LABS: Urine Microscopic Reflex NO UMIC
--- NOTE | 2018-08-12 19:07 | PN ---
Date of Progress Note: 08/12/2018 Subjective: The patient is seen and examined. Chart reviewed and case discussed with RN. The patie nt complains of some tightness and swelling of his right upper extremity. Otherwise, no other compla ints. Family at the bedside. Treatment plan explained. All questions answered. Code Status: Full code. Medications: List reviewed. Physical Examination: Vital Signs: Temperature 98.7, heart rate 84, blood pressure 141/72, respirations 20, O2 96% on room air. General: Awake, alert, oriented x3. No distress. Elderly male. CV: S1, S2. Peripheral pulses present. No murmurs. Respiratory: Moving air well bilaterally. No wheezing or stridor. Gastrointestinal: Abdomen is soft, nontender, nondistended. Positive bowel sounds. Extremities: No clubbing, cyanosis. Right upper extremity swelling, ecchymosis, and hematoma presen t. Decreased range of motion due to hematoma and pain. Neurovascularly intact. No paresthesias. Neuro: Cranial nerves 2 through 12 intact grossly. No focal neurological deficit. Speech is normal . Sensation intact to light touch. Skin: Right upper extremity has some ecchymosis around the hand as well as some bruising around the arm. Laboratory Data: Sodium 139, potassium 3.7, chloride 102, CO2 31, BUN 15, creatinine 1.1, glucose 11 5, calcium 8.5, magnesium 2.2, albumin 2.9, INR 2.51. WBC 10.4, H and H 13.5 and 39.2, platelets 308 , neutrophils 82%. Extremity venous study shows no evidence of right upper extremity DVT. Assessment: An 87-year-old male with: 1.Recent history of pulmonary embolism. We will continue patient on heparin drip due to hematoma. 2.Right arm hematoma likely due to Xarelto. The patient has been assessed by Dr. Sosa. No madhavi rtment syndrome signs. We will continue neuro checks q.4 hours. We will continue to elevate. We wi ll continue empiric antibiotic treatment to avoid any further infection. We will continue vascular e valuation with pulse check. 3.Essential hypertension. We will resume home medications as appropriate. 4.Gastrointestinal and deep venous thrombosis prophylaxis addressed. Plan: We will continue to monitor closely for now. We will continue heparin drip and IV antibiotics . Monitor for progress. SA/MODL Voice ID: [id number] Report ID: [id number]
[2018-08-12] MEDS ORDERED: BOSWELLIA SERRA PO SCH (21:00)
[2018-08-12] MEDS ORDERED: [UNRECOGNIZED DRUG - OTHER] PO SCH (21:00)
[2018-08-12] MEDS ORDERED: GLUCOSAMINE PO SCH (21:00)
[2018-08-12] MEDS ORDERED: D3 PO SCH (21:00)
[2018-08-12] MEDS: LACTOBACILLUS/ACIDOPHILUS TAB PO SCH (21:38)
[2018-08-13] MEDS: VANCOMYCIN 1.5 GM in NA CHLORIDE 0.9% 500 ML IVPB SCH (05:48)
[2018-08-13 07:35] LABS: Absolute Lymphocytes (CBC) 1.1 K/uL (0.7-4.9); Absolute Monocytes 0.6 K/uL (0.1-1.3); Absolute Neutrophil 4.9 K/uL (1.8-8.0); Basophils % 0.4 % (0-1.3); Eosinophils % 1.9 % (0-4.4); Hematocrit 26.4 % (39.6-49.0); Lymphocytes % 15.9 % (15.3-44.8); MCH 30.9 pg (27.0-35.0); MCV 94.1 fL (80-100); MPV 8.2 fL (7.6-11.3); Monocytes % 8.5 % (3.3-12.3); RBC Red Blood Cell Count 2.81 M/uL (4.33-5.43)
[2018-08-13] MEDS: Levofloxacin 750mg IV 750 MG/150 ML BAG IV SCH (08:00)
[2018-08-13 08:10] LABS: BUN Blood Urea Nitrogen 9 mg/dL (7-18); Bicarbonate 23 mmol/L (21-32); Glucose Level 68 mg/dL (74-106); Sodium Level 145 mmol/L (136-145)
[2018-08-13 08:12] LABS: Potassium 2.7 mmol/L (3.5-5.1)
[2018-08-13] MEDS ORDERED: KCL 20 MEQ/100 mL IVPB 20 MEQ/100 ML BAG IV SCH (09:00)
[2018-08-13] MEDS ORDERED: NA CHLORIDE 0.9% 1,000 ML ONE (09:58)
[2018-08-13] MEDS ORDERED: CALCIUM GLUC 10% INJ 4.65 MEQ in NA CHLORIDE 0.9% 100 ML IV ONE (10:22)
[2018-08-13] MEDS: CALCITROL 0.25 MCG CAP PO SCH (11:47)
[2018-08-13] MEDS: KCL 20 MEQ/100 mL IVPB 20 MEQ/100 ML BAG IV SCH ×2 (14:00→15:01)
[2018-08-13] MEDS: HEPARIN/D5W 25,000 UNIT/500 ML BAG IV SCH (15:34)
--- NOTE | 2018-08-13 17:18 | PN ---
Date of Progress Note: 08/13/2018 Subjective: The patient is seen and examined. Chart reviewed and case discussed with RN. The patient has significant improvement in his hematoma with elevation of his arm. Does have multiple electrolyte abnormalities. Did report some shortness of breath overnight. Medications: List reviewed. Physical Examination: Vital Signs: Temperature 97.9, heart rate 90, blood pressure 141/86, respirations 18, O2 92% on room air. General: Awake, alert, oriented x3, mildly ill-appearing elderly male. CV: S1 and S2. Peripheral pulses present. Regular rate and rhythm. Respiratory: Moving air well bilaterally. No wheezing or stridor. Gastrointestinal: Abdomen is soft, nontender, nondistended. Positive bowel sounds. Extremities: No clubbing or cyanosis. Right upper extremity has some swelling , significantly improved. Skin: Ecchymosis and hematoma of the right upper extremity. Swelling significantly decreased. Sensation intact. Radial pulse present. Neurologic: Nonfocal. Laboratory Data: Sodium 145, potassium 2.7, chloride 117, CO2 23, BUN 9, creatinine 0.6, glucose 68, calcium 5.4. WBC 6.7, H and H 8.7 and 26.4, platelets 205, neutrophils 73%. Assessment And Plan: An 87-year-old male with: 1. Recent pulmonary embolism. Continue heparin drip due to hematoma. 2. Right arm hematoma due to his anticoagulation, improving. We will continue elevation. 3. Hypocalcemia. Replace and monitor. 4. Hypokalemia. We will replace and monitor. 5. Essential hypertension, stable. 6. Gastrointestinal and deep vein thrombosis prophylaxis addressed. /GENIE Voice ID: [id number] Report ID: [id number] AMADO
[2018-08-13] MEDS: LACTOBACILLUS/ACIDOPHILUS TAB PO SCH (20:28)
[2018-08-13] MEDS ORDERED: KCL 20 MEQ/100 mL IVPB 20 MEQ/100 ML BAG IV ONE (20:56)
[2018-08-14] MEDS: VANCOMYCIN 1.5 GM in NA CHLORIDE 0.9% 500 ML IVPB SCH (07:00)
[2018-08-14 07:09] LABS: Absolute Lymphocytes (CBC) 0.9 K/uL (0.7-4.9); Absolute Monocytes 0.4 K/uL (0.1-1.3); Basophils % 0.4 % (0-1.3); Hematocrit 46.6 % (39.6-49.0); Lymphocytes % 10.2 % (15.3-44.8); MCH 30.6 pg (27.0-35.0); MCV 93.4 fL (80-100); MPV 8.8 fL (7.6-11.3); Monocytes % 5.1 % (3.3-12.3); RBC Red Blood Cell Count 4.99 M/uL (4.33-5.43)
[2018-08-14 07:52] LABS: Albumin 2.1 g/dL (3.4-5.0); Bilirubin Total 0.6 mg/dL (0.2-1.0); Potassium 4.5 mmol/L (3.5-5.1); Protein, Total 4.8 g/dL (6.4-8.2)
[2018-08-14] MEDS: Levofloxacin 750mg IV 750 MG/150 ML BAG IV SCH (08:57)
[2018-08-14] MEDS: CALCITROL 0.25 MCG CAP PO SCH (08:58)
[2018-08-14] MEDS ORDERED: VANCOMYCIN 1.75 GM in NA CHLORIDE 0.9% 500 ML IVPB SCH ×2 (09:00→15:00)
[2018-08-14] MEDS: ALBUTEROL 2.5 MG/3 ML NEB SOL NEB PRN (13:31)
--- NOTE | 2018-08-14 14:33 | RAD REPORT ---
EXAM DESCRIPTION: RAD - Abdomen Acute Series - 08/14/2018 2:02 pm CLINICAL HISTORY: Abdominal pain FINDINGS: The patient is in a poor degree of inspiration. Eventration of the left hemidiaphragm seen . Free air is not seen beneath the diaphragm. . An air-filled structure measuring 11 centimeters is present within the left upper pelvis extending into the right abdomen. The remainder the bowel gas pattern is unremarkable. Most likely this represe nts colon. It could represent cecum or sigmoid. This probably represents a pseudo-obstruction. A volv ulus can have this appearance but probably is less likely. If the patient has clinical symptoms to hermosillo ggest this then CT scan would be recommended
[2018-08-14] MEDS: RIVAROXABAN 15 MG TABLET PO SCH (17:00)
--- NOTE | 2018-08-14 17:34 | PN ---
Date of Progress Note: 08/14/2018 History: The patient seen and examined. Chart reviewed and case discussed with RN. The patient's hematoma has improved significantly. He does complain of some abdominal distention. The patient was initially to be discharged, however, became hypotensive and is very weak, unable to even transfer into the wheelchair due to not being able to use his dominant arm secondary to the hematoma. Therefore, discharge was canceled. Medications: List reviewed. Physical Examination: Vital Signs: Temperature 98.2, heart rate 104, blood pressure 112/64, respirations 18, OS 95% on room air. General: Awake, alert, oriented x3. Elderly male, in some mild distress. Somewhat ill-appearing, frail. CV: S1 and S2. Peripheral pulses present. Regular rate and rhythm. Respiratory: Moving air well bilaterally. No wheezing. Gastrointestinal: Abdomen is mildly distended. Bowel sounds are positive. Mild tenderness to palpation in the epigastric region. Bowel sounds positive. Extremities: No clubbing, cyanosis. The patient does have right upper extremity edema. Skin: Ecchymosis and swelling of the right upper extremity due to the hematoma , improved. Neurologic: Nonfocal. Does have generalized weakness. Laboratory Data: Sodium 140, potassium 4.5, chloride 105, CO2 28, BUN 17, creatinine 1, glucose 112, calcium 7.7, albumin 2.1. WBC 8.4, H and H 15.3 and 46.6, platelets 164. Assessment And Plan: An 87-year-old male with: 1. Recent pulmonary embolism. The patient now switched back to Xarelto and heparin drip has been discontinued. 2. Right arm hematoma due to anticoagulation, significantly improved. Continue elevation, neurovascular checks. 3. Hypocalcemia. Replace and monitor. Corrected calcium with hypoalbuminemia is normal. 4. Hypokalemia, replaced. We will continue to monitor. 5. Essential hypertension, stable. 6. Generalized weakness. The patient unable to even transfer to the wheelchair. We will obtain PT evaluation. 7. Abdominal pain, distention. We will obtain acute abdominal series. Plan: 1. Continue to monitor closely. 2. Hypotension, 500 mL bolus normal saline, and monitor. ADDENDUM: Patients xray shows obstruction. Will try conservative measures first. Will discuss with Dr. Sosa. /GENIE Voice ID: [id number] Report ID: [id number] MTDJerry
[2018-08-14] MEDS: LACTOBACILLUS/ACIDOPHILUS TAB PO SCH (20:22)
[2018-08-15 08:02] LABS: MPV 8.1 fL (7.6-11.3)
[2018-08-15 08:16] LABS: Potassium 4.4 mmol/L (3.5-5.1)
[2018-08-15] MEDS: RIVAROXABAN 15 MG TABLET PO SCH (08:27)
[2018-08-15] MEDS: CALCITROL 0.25 MCG CAP PO SCH (08:28)
[2018-08-15] MEDS: Levofloxacin 750mg IV 750 MG/150 ML BAG IV SCH (08:28)
--- NOTE | 2018-08-15 14:06 | RAD REPORT ---
EXAM DESCRIPTION: CT - Abdomen Pelvis Wo Contrast - 08/15/2018 1:01 pm CLINICAL HISTORY: Abdominal pain, abdominal distention, possible bowel obstruction COMPARISON: None. TECHNIQUE: Axial [address] imaging of the abdomen and pelvis was performed without IV contrast. No IV contrast was given because of allergy, abnormal renal function, patient refusal or physician re quest. Oral contrast was given. All CT scans are performed using dose optimization technique as appropriate and may include automated exposure control or mA/KV adjustment according to patient size. FINDINGS: Small bilateral pleural effusions are present incompletely assessed on this study. There i s partial atelectasis of the left lower lobe. Patient has a large hiatal hernia with much of the stom ach displaced into the posterior lower left chest. This is favored to be hiatal hernia over elevated left hemidiaphragm. Very minimal pericardial effusion present. The liver, spleen and pancreas show no suspicious findings on non-contrast imaging. Gallbladder and b iliary tree are also without suspicious finding. Gallstones can be occult on CT imaging. No evidence for an acute gallbladder process. No hydronephrosis or suspicious renal mass. Low-density masses are probably renal cysts. No significa nt adrenal finding. Isodense renal masses and pyelonephritis cannot be excluded in the absence of IV contrast. Urinary bladder is fully contracted around a Barber catheter. No wall thickening or mass of the herniated stomach. No small bowel dilatation. Oral contrast has aleks ched the right side of the colon. Moderate stool volume is present in the right-sided the colon throu gh the descending colon. The sigmoid colon is quite tortuous and redundant reaching to the far superi or anterior aspect of the abdomen. Sigmoid colon is distended to 8 cm. At the distal aspect near the rectum there is no mass or wall thickening. No twisting or rotation that would indicate a sigmoid vol vulus. No free air, free fluid or inflammatory stranding. No edema of the colon wall. Patient has a l arge left inguinal hernia containing fat. There is some congestion. A portion of the dome of the blad luke extends into the origin of the hernia. No bowel in the hernia. No bulky lymphadenopathy or suspicious mass. There is some fluid retention in the subcutaneous fatty tissues. In the right-side rectus abdominus there is a 14 cm CC x 12 cm TR x 7 cm AP rectus hematoma. This is between the umbilicus and the pubic symphysis. There is minimal hematoma formation in the inferior mo st aspect of the left rectus muscle. Advanced disc and bony degenerative changes are present with a left convex scoliotic curvature. Arter ial calcifications are present. Patient has central spinal stenosis. Patient has severe degenerative change of the right hip joint with deformity of the acetabulum. IMPRESSION: Patient has a large lower right-side rectus hematoma 14 x 12 x 7 cm in size. Distended to dilated cecum those quite tortuous and redundant reaching the anterior superior aspect o f the abdomen near the diaphragm. Remainder the colon has moderate stool volume. There is no mass at the proximal or distal end of the sigmoid colon and no wall thickening or edema. No rotation abnormality to suspect volvulus. No small bowel dilatation. Small bilateral pleural effusions only partially imaged. There is left base atelectasis. Large hiatal hernia with most of the stomach intrathoracic. Severe lumbar spine degenerative change with foraminal stenosis and central spinal stenosis. Full assessment is limited is the absence of IV contrast.
[2018-08-15] MEDS: PSYLLIUM 1 PKT PO SCH (16:43)
[2018-08-15] MEDS: BISACODYL 10 MG RECTAL SUPP PR SCH (16:43)
[2018-08-15] MEDS ORDERED: FUROSEMIDE 20 MG TABLET PO ONE (17:00)
--- NOTE | 2018-08-15 17:52 | PN ---
Date of Progress Note: 08/15/2018 Subjective: The patient was seen and examined. Chart reviewed, and case was discussed with RN and Dr. Sosa. The patient reports that he had a bowel movement last night, however, has not really passing much gas, continues to have abdominal distention and discomfort. The patient is very weak, took 4 people to get him into the wheelchair yesterday. Medications: List reviewed. Physical Examination: Vital Signs: Temperature 98.3, heart rate 105, blood pressure 149/88, respirations 18, O2 of 94% on room air. General: Awake, alert, oriented x3. Elderly male, ill-appearing. CV: S1, S2. Sinus tachycardia. No murmurs. Peripheral pulses present. Respiratory: Diminished breath sounds at the bases, otherwise, moving air well. No wheezing. Gastrointestinal: Abdomen is distended. Hypoactive bowel sounds. Tenderness to palpation. No guarding or rigidity. Extremities: No clubbing, cyanosis. Does have some edema of the right upper extremity, improving. Skin: Ecchymosis of the right upper extremity, hematoma, largely resolved. Neurologic: Nonfocal. However, the patient has severe generalized weakness. Moves all 4 extremities. Speech is normal. Laboratory Data: Sodium 136, potassium 4.4, chloride 102, CO2 of 26, BUN 30, creatinine 1.7, glucose 128, calcium 7.8, and platelets 314. Imaging Data: Abdomen and pelvis CT, pending. Acute abdominal series shows air-filled structure measuring 11 cm present within the left upper pelvis extending into the right abdomen. Remainder of the bowel gas pattern is unremarkable, likely represents colon could represent cecum or sigmoid, probably represents a pseudo-obstruction, volvulus could have this appearance, probably less likely. Assessment: An 87-year-old male with: 1. Right arm hematoma secondary to anticoagulation, significantly improved. We will continue elevation as tolerated. Neurovascular checks. 2. Acute kidney injury, likely prerenal azotemia. We will continue with IV fluid hydration and monitor creatinine and avoid NSAIDs. 3. Colonic obstruction. Conservative treatment for now. Keep n.p.o. We will have Surgery evaluate the patient. No nausea or vomiting, therefore, we will hold off on NG tube placement. 4. Recent pulmonary embolism. The patient is on Xarelto. 5. Hypocalcemia. Continue replacement. 6. Hypokalemia, replace. Continue to monitor. 7. Essential hypertension. The patient was very hypotensive, required a bolus of IV fluids, improved. 8. Generalized weakness. The patient will likely need [facility] facility. The patient is unable to even transfer to the wheelchair. We will obtain PT evaluation. 9. GI and DVT prophylaxis addressed. Plan: Changed to inpatient. We will have social sciences lecturer consult for [facility]ci facility placement. PT eval. Follow up on CT abdomen and pelvis. Keep n.p.o. for now. ADDENDUM: Spoke with radiologist Dr. Boyd and surgeon Dr. Sosa. No obstruction however does have hematoma in rectus sheath. Switch anti-coagulants. SA/MODL Voice ID: [id number] Report ID: [id number] MTDD
[2018-08-15] MEDS: ENOXAPARIN 100 MG/ML SYR SQ SCH (20:52)
[2018-08-15] MEDS: LACTOBACILLUS/ACIDOPHILUS TAB PO SCH (20:52)
[2018-08-16 06:27] LABS: Absolute Lymphocytes (CBC) 1.1 K/uL (0.7-4.9); Absolute Monocytes 1.1 K/uL (0.1-1.3); Absolute Neutrophil 15.3 K/uL (1.8-8.0); Basophils % 0.2 % (0-1.3); Hematocrit 22.9 % (39.6-49.0); Lymphocytes % 6.5 % (15.3-44.8); MCH 30.7 pg (27.0-35.0); MCV 93.1 fL (80-100); Monocytes % 6.4 % (3.3-12.3); RBC Red Blood Cell Count 2.45 M/uL (4.33-5.43)
[2018-08-16 07:42] LABS: Blood Morphology Comment NOT SEEN (NOT SEEN); Platelet Estimate ADEQ
[2018-08-16 10:48] LABS: Protime INR 1.99
[2018-08-16] MEDS: PSYLLIUM 1 PKT PO SCH ×2 (10:50→21:48)
[2018-08-16] MEDS: CALCITROL 0.25 MCG CAP PO SCH (10:50)
[2018-08-16] MEDS: ENOXAPARIN 100 MG/ML SYR SQ SCH (10:50)
[2018-08-16] MEDS: BISACODYL 10 MG RECTAL SUPP PR SCH (10:51)
[2018-08-16 11:05] LABS: Hematocrit 22.9 % (39.6-49.0)
[2018-08-16] MEDS: ALBUTEROL 2.5 MG/3 ML NEB SOL NEB PRN (11:45)
--- NOTE | 2018-08-16 13:06 | P.PN ---
Subjective Date of Service: 08/15/18 Chief Complaint: Abdominal Pain Patient has some abdominal distention and pain, but had a bowel movement with some improvement. HE still feels distended. Physical Examination - Vital Signs Temperature: 98.2 F Blood Pressure: 124/70 Pulse: 108 Respirations: 19 Pulse Ox (%): 92 - Physical Exam General: Alert, In no apparent distress, Cooperative Gastrointestinal: Other (soft, moderate distention, minimal TTP, no rebound, no guarding, no peritoneal signs) Integumentary: Other (RIGHT arm swelling is much improved) Assessment And Plan - Current Problems (Diagnosis) (1) Constipation Current Visit: Yes Status: Acute Plan: - increase liquid intake - metamucil BID - dulcolax suppository - continue arm elevation - consider change anticoagulation as patient had 2 complications related Qualifiers: Constipation type: unspecified constipation type Qualified Code(s): K59.00 - Constipation, unspecified
[2018-08-16] MEDS ORDERED: FUROSEMIDE 20 MG TABLET PO ONE (17:00)
--- NOTE | 2018-08-16 17:51 | PN ---
Date of Progress Note: 08/16/2018 Subjective: The patient is seen and examined. Chart reviewed, and case discussed with RN and Dr. Sosa. The patient did have a bowel movement this morning. Otherwise, no other complaints. Does have some abdominal distention. Medications: List reviewed. Physical Examination: Vital Signs: Temperature 98.2, heart rate 108, blood pressure 124/70, respirations 19, O2 of 92% on room air. General: Awake, alert, oriented x3. An elderly male, somewhat ill-appearing. CV: S1, S2. Peripheral pulses present. Sinus tachycardia. Respiratory: Diminished breath sounds at the bases, otherwise moving air well bilaterally. Extremities: No clubbing, cyanosis, or edema. No calf tenderness. The patient does have some swelling of the right upper extremity, which is improved. Skin: Ecchymosis, right upper extremity. Neurologic: Nonfocal. Does have generalized weakness. Laboratory Data: Sodium 136. WBC 17.6, H and H 7.5 and 22.9, platelets 301. Repeat H and H 7.6 and 22.9. Occult blood is negative. CT scan of the abdomen and pelvis shows large lower right-sided rectus hematoma, 14 x 12 x 7 cm dilated cecum, quite tortuous redundant reaching the anterior aspect of the abdomen near the diaphragm. Remainder of the colon has moderate stool volume. No mass at the proximal or distal end of the sigmoid colon. No wall thickening or edema. No rotation abnormalities to suspect volvulus. No small bowel dilatation. Small bilateral pleural effusions only partially-imaged. Left base atelectasis. Large hiatal hernia. Severe lumbar spine degenerative change with foraminal stenosis and central spinal stenosis. Assessment: An 87-year-old male with: 1. Right arm hematoma, improving. We will continue neurovascular checks. The patient unable to tolerate Xarelto due to multiple hematomas. Switch to Coumadin. The patient was started on Lovenox last night. 2. Acute kidney injury, likely related to prerenal azotemia. We will repeat creatinine level today. Continue IV fluids and avoid NSAIDs. 3. Acute blood loss anemia, likely secondary to hematoma. CT scan of the abdomen shows rectus sheath hematoma. No intervention recommended by Dr. Sosa at this time. Does not need to be evacuated. Continue to monitor. 4. Recent pulmonary embolism. The patient will require anticoagulation. 5. Hypocalcemia. We will replace. 6. Hypokalemia. Replace and monitor. 7. Essential hypertension, stable. 8. Generalized weakness. Continue PT eval. 9. Degenerative changes of the spine. Plan: We will start Coumadin today if hemoglobin remains stable. We will continue IV antibiotic. Continue bowel regimen. Appreciate Dr. Sosa's input. The patient will benefit from nursing home facility versus possible LTAC. Overall, guarded prognosis. Will type and screen. May need to be transfused if hemoglobin drops below 7. The patient did have elevation of his white count today, however, currently still afebrile, may be related to acute phase reactant with acute issues including hematoma. We will continue to monitor. The patient is on Levaquin. At the moment, he does have some atelectasis and he has been given incentive spirometer. The patient remains full code. ADDENDUM: Spoke with oncologist on-call Dr. Joseph. She recommends holding anticoagulation due to acute anemia and multiple hematomas. Patient will need to be switched to Coumadin rather than continue on the newer direct oral anti coagulants. Will recheck hemoglobin this evening and depending on results may need to hold Lovenox. Had a long discussion with patient and his they understand that overall his prognosis is poor due to the concern with hypoxia and respiratory failure secondary to PE while anticoagulation is being held. Further discussion regarding code status; patient will remain full code per his and 's wishes. /GENIE Voice ID: [id number] Report ID: [id number] AMADO
[2018-08-16 19:22] LABS: Hematocrit 21.4 % (39.6-49.0)
[2018-08-16] MEDS: LACTOBACILLUS/ACIDOPHILUS TAB PO SCH (21:48)
[2018-08-17] MEDS ORDERED: NA CHLORIDE 0.9% 250 ML ONE (01:42)
[2018-08-17 07:21] LABS: Hematocrit 24.6 % (39.6-49.0)
[2018-08-17 07:38] LABS: Albumin 2.2 g/dL (3.4-5.0); Bilirubin Total 1.2 mg/dL (0.2-1.0); Potassium 3.7 mmol/L (3.5-5.1); Protein, Total 5.2 g/dL (6.4-8.2)
[2018-08-17] MEDS ORDERED: POTASSIUM CL SA 10 MEQ TAB PO ONE (09:00)
[2018-08-17] MEDS ORDERED: Levofloxacin 750mg IV 750 MG/150 ML BAG IV SCH (09:00)
[2018-08-17] MEDS: PSYLLIUM 1 PKT PO SCH (09:00)
--- NOTE | 2018-08-17 09:10 | P.CNS ---
Date of Consult: 08/17/19 (Hematology) Pt seen and examined at 8am this morning. Reason for consultation: Multiple hematomas in the setting of anticoagulation for PE HPI: Patient was recently admitted for acute bilateral pulmonary embolism likely secondary from the DVT in right lower extremity, on August 02, 2018. He also received tpa due to the extensive b/l PE causing RV strain and later discharged on Xarelto. He presented back to the ER with RUE swelling and pain. DVT was ruled out but the soft tissue swelling was likely a hematoma/ inflammation. Hb was 13 gm with deranged coags (PT 29/ PTT 41/ INR 2.5. Xarelto was held and he has been on heparin drip. He was also briefly on lovenox as an effort to transition to coumadin. CT abdomen was done due to abd pain and also due to drop in Hb which revealed a 14cm rectus sheath hematoma. He has been transfused PRBC with adequate response in Hb to 8.2 gm today. Anticoagulation has been on hold since 08/16/18 pm. Symptomatically he states he feels better though appears to be in mild respiratory distress which as per is his usual state of breathing. He is predominantly sedentary/ wheelchair bound due to right hip pain requiring help for most daily activities. He is on antibiotics as emperic treatment for the RUE swelling. Previously treated for UTI. PMH: HTN FH: Father had bladder cancer. Denies any FH of sudden deaths, blood clots, hereditary bleeding diathesis. SH: lives with . Non smoker. Denies alcohol or drug abuse. Meds reviewed. EXAM: Vitals stable: O2 sats 93% on room air Gen: elderly make lying in bed and eating breakfast. Though states is comfortable, appears to be in mild resp distress with intermittent wheezing sounds Skin; dry, wrinkled, multiple ecchymoses. Huge ecchymoses on the right upper extremity R>L. Head: normocephalic, atraumatic. Eyes: anicteric, no injection of conjunctivae. Ears: hearing grossly intact. Nose: nares patent. Throat: no erythema, no exudate. Neck: neck supple, without lymphadenopathy. Respiratory: good respiratory effort, good sir entry; no wheezes Cardiovascular: regular rate and rhythm, no murmurs, no cyanosis. Abdomen: bowel sounds present and equal in all four quadrants, abdomen is soft, distended, tender right lateral Peripheral Vascular: 1+ pedal edema. Neurological: AAOx3, moving all extremities. Lymph: no palpable LAD Labs and imaging as per chart. Problems 1. Extensive bilateral PE 2. Hematomas secondary to coagulopathy post anticoagulation (xarelto and tPa) 3. Severe anemia secondary to blood loss Recommendations: Complex case scenario with extensive PE, now with multiple hematomas post xarelto (post tpa on 08/04/18) Significant drop in Hb mandates discontinuation of anticoagulation at this time until hematomas are stable/ contained and Hb stable. But given recent RLE DVT and extensive PE in the context of sedentary life style/immbolity, risk of recurrent PE is a possibility which might be catastrophic. IVC filter as an attempt to prevent further emboli would likely be ideal in this setting. Patient and understand that once his Hb remains stable and hematoma resolves/ contained, he will need to be on anticoagulation, likely with coumadin, with heparin/ lovenox bridging with close monitoring of INR and Hb. Risks, benefits, side effects, pros and cons of various anticoagulation (xarelto vs coumadin) discussed in detail. understands dietary restrictions, need for close monitoring of INR and also availability of reversal agent while on coumadin. Pt also understands that IVC filter by itself can provoke thrombosis as well. They understand the critical nature of the situation at this time given need of anticoagulation with the risk of bleeding and worsening anemia. Closely monitor cbc q 6 hourly and transfuse to keep Hb >8gm. He had normal coags at the time of initial admission. INR was 2.51 at the time of the second admisison for RUE swelling. Xarelto usually does not affect the INR. Unclear etiology. Multifactorial possibility/ ? tpa use (though this was on 08.04.18)- needs monitoring and work up as indicated. Repeat coags. INR 1.9. If further evidence of bleeding/ drop in Hb, will need FFP. Will closely follow. Transfer to a tertiary setting to be considered if IVC filter placement is not possible here. D/w Dr Hammond.
[2018-08-17] MEDS: CALCITROL 0.25 MCG CAP PO SCH (10:07)
[2018-08-17] MEDS: BISACODYL 10 MG RECTAL SUPP PR SCH (10:07)
--- NOTE | 2018-08-17 13:51 | P.DS ---
Admission Date: 08/15/18 Discharge Date: 08/17/18 Disposition: TRANSFER TO [facility] Discharge Condition: FAIR Reason for Admission: Abdominal Pain Consultations: Doctor Ian, general surgery Brief History of Present Illness: Mr Sanz is an 87 years old male with history of HTN, hiatal hernia who was recently admitted to this hospital due to PE. He was discharged home on Xarelto. The patient was doing well until yesterday when suddenly, his right arm start to be swollen. He denied any trauma. This was the arm where he had his IV during hospitalization. He denied any tingling or numnes in his fingers. He denied fever or chills. Lab work shows normal WBC count. Right arm US remarkable for a complex fluid collection most likely consistent with an hematoma. Hospital Course: Patient was recently admitted for acute bilateral pulmonary embolism likely secondary from the DVT in right lower extremity, noted on right lower extremity ultrasound done on August 02, 2018. He was discharged last week on Xarelto and was doing well until day prior to admission when he started noticing his right upper extremity swelling and pain. He was diagnosed with a hematoma, admitted for further care. His right arm hematoma and swelling improved throughout the stay. This was complicated by acute blood loss anemia as well as an rectus sheath hematoma. He was transfused 1 unit PRBCs throughout the stay. His anticoagulation was held due to multiple hematomas and acute blood loss anemia. Hematology/oncology was consulted, they recommended holding anti coagulation due to the acute anemia and multiple hematomas. Patient has a overall poor prognosis due to the concern with hypoxia/respiratory distress secondary to his pulmonary embolism while anticoagulation is being held secondary to the acute blood loss and hematoma. It was decided that patient would benefit from placement of IVC filter and was transferred to [facility] for IVC filter placement. Vital Signs/Physical Exam: Temp Pulse Resp BP Pulse Ox 98.3 F 93 H 21 H 107/64 94 08/17/18 12:00 08/17/18 12:00 08/17/18 12:00 08/17/18 12:08/17/18 12:00 General: Alert, Oriented x3, Mild distress HEENT: Atraumatic, PERRLA, EOMI Neck: Supple, JVD not distended Respiratory: Expiratory wheezes, Inspiratory wheezes Cardiovascular: Regular rate/rhythm, Normal S1 S2 Gastrointestinal: Normal bowel sounds, No tenderness Musculoskeletal: Other (Large hematoma on right upper extremity) Integumentary: No rashes Neurological: Normal speech, Normal tone, Normal affect Lymphatics: No axilla or inguinal lymphadenopathy Laboratory Data at Discharge: WBC 17.6 K/uL (4.3-10.9) H D 08/16/18 05:32 Hgb 8.2 g/dL (13.6-17.9) L 08/17/18 06:50 Hct 24.6 % (39.6-49.0) L 08/17/18 06:50 Plt Count 301 K/uL (152-406) 08/16/18 05:32 PT 23.6 SECONDS (9.5-12.5) H 08/16/18 10:09 INR 1.99 08/16/18 10:09 APTT 92.2 SECONDS (24.3-36.9) H 08/14/18 07:43 Sodium 137 mmol/L (136-145) 08/17/18 06:50 Potassium 3.7 mmol/L (3.5-5.1) 08/17/18 06:50 BUN 31 mg/dL (7-18) H 08/17/18 06:50 Creatinine 1.30 mg/dL (0.55-1.3) 08/17/18 06:50 Glucose 86 mg/dL (74-106) 08/17/18 06:50 Magnesium 2.2 mg/dL (1.8-2.4) 08/12/18 01:19 Total Bilirubin 1.2 mg/dL (0.2-1.0) H 08/17/18 06:50 AST 31 U/L (15-37) 08/17/18 06:50 ALT 20 U/L (12-78) 08/17/18 06:50 Alkaline Phosphatase 57 U/L (45-117) 08/17/18 06:50 Lipase 123 U/L (73-393) 08/12/18 01:19 Home Medications: Glucosamine/D3/Boswellia Kasie [Glucosamine Daily Complex Tab] 1 tab PO BEDTIME 08/12/18 Lactobacillus Combination No.4 [Probiotic] 1 cap PO BEDTIME 08/12/18 levoFLOXacin [Levaquin] 500 mg PO DAILY #8 tab 08/14/18 New Medications: levoFLOXacin [Levaquin] 500 mg PO DAILY #8 tab Patient Discharge Instructions: f/up w PCP in 2-3 days. f/up w surgeon Dr. Sosa in 1 week. Return to ER for worsening condition Diet: AHA Activity: Fall precautions Followup: Matt Sosa MD [ACTIVE - CAN ADMIT] - 1 Week (Call for appointment) Physician Review: Patient Assessed, Agree with Above Assessment and Plan Time spent managing pt's care (in minutes): 55
[2018-08-17 14:12] LABS: Absolute Lymphocytes (CBC) 1.2 K/uL (0.7-4.9); Absolute Monocytes 0.9 K/uL (0.1-1.3); Absolute Neutrophil 9.2 K/uL (1.8-8.0); Basophils % 0.4 % (0-1.3); Eosinophils % 2.2 % (0-4.4); Hematocrit 24.8 % (39.6-49.0); Lymphocytes % 10.2 % (15.3-44.8); MCH 31.1 pg (27.0-35.0); MCV 91.1 fL (80-100); MPV 8.1 fL (7.6-11.3); Monocytes % 7.6 % (3.3-12.3); RBC Red Blood Cell Count 2.72 M/uL (4.33-5.43)
[2018-08-17 14:45] LABS: Albumin 2.2 g/dL (3.4-5.0); Potassium 3.9 mmol/L (3.5-5.1); Protein, Total 5.5 g/dL (6.4-8.2)
== END 2018-08-17 16:28 | disposition short-term general hospital (02) | DRG 813 ==
LOC: ER 00:21 → INTOOBSV 05:55 → ERHOLD 05:55 → OBSVTOIN 05:55 → 2ND 06:10 → OBSVTOIN 08-15 13:01
PROVIDERS: ADMIT Internal Medicine; ATTEND Family Medicine
PROC: 30233N1 Transfusion of Nonautologous Red Blood Cells into Peripheral Vein, Percutaneous Approach (ICD-10-PCS; principal; 2018-08-17)
DX: D68.32 Hemorrhagic disorder due to extrinsic circulating anticoagulants (principal); D62 Acute posthemorrhagic anemia; L03.113 Cellulitis of right upper limb; N17.9 Acute kidney failure, unspecified; K56.609 Unspecified intestinal obstruction, unspecified as to partial versus complete obstruction; M79.81 Nontraumatic hematoma of soft tissue; Y92.019 Unspecified place in single-family (private) house as the place of occurrence of the external cause; I10 Essential (primary) hypertension; K44.9 Diaphragmatic hernia without obstruction or gangrene; Z86.711 Personal history of pulmonary embolism; T45.7X5A Adverse effect of anticoagulant antagonists, vitamin K and other coagulants, initial encounter; E83.51 Hypocalcemia; E87.6 Hypokalemia; I95.9 Hypotension, unspecified; K59.00 Constipation, unspecified
CPT/HCPCS: 36415; 74022; 74176; 80048; 80053; 80076; 80202; 81003; 82040; 82274; 83605; 83690; 83735; 85014; 85018; 85025; 85049; 85610; 85730; 86850; 86900; 86901; 87040; 93971; 94640; 94760; 96365; 96375; 97163; 97530; 99285; G0378; J0610; J1644; J1650; J2543; J3370; J7030; P9016